=== PATIENT | female | born 1990 | race Caucasian/White ===

== ENCOUNTER 2017-03-04 19:42 | Emergency (ER) | payer MEDICAID ==
[~2017-03-04] VITALS: Ht 170.2 cm; Wt 98.7 kg
[~2017-03-04 19:42] MED LIST: ABX FOR UTI; ALBUTEROL MDI; [UNRECOGNIZED DRUG - OTHER]
[2017-03-04] MEDS ORDERED: CEFTRIAXONE 250 MG IM ONE (22:30)
[2017-03-04] MEDS ORDERED: AZITHROMYCIN 500 MG TABLET PO ONE (22:30)
[2017-03-04 22:34] VITALS: BP 116/70
[2017-03-04] MEDS ORDERED: AZITHROMYCIN 500 MG TABLET ONE (22:37)
[2017-03-04] MEDS ORDERED: CEFTRIAXONE 250 MG ONE (22:37)
[2017-03-04] MEDS ORDERED: LIDOCAINE 1%, 20ML ONE (22:38)
== END 2017-03-04 23:10 | disposition home or self-care (01) ==
LOC: ED 23:01
DX: O23.592 Infection of other part of genital tract in pregnancy, second trimester (principal); Z3A.17 17 weeks gestation of pregnancy; N76.0 Acute vaginitis; J45.901 Unspecified asthma with (acute) exacerbation; Z88.0 Allergy status to penicillin; Z87.891 Personal history of nicotine dependence
CPT/HCPCS: 81003; 87210; 87491; 87591; 87808; 96372; 99284; J0696

== ENCOUNTER 2017-04-23 18:42 | Outpatient (CLI) | payer MEDICAID ==
[2017-04-23 20:25] VITALS: BP 130/80
[2017-04-23 20:26] LABS: DAU SCREEN DISCLAIMER
[2017-04-23 21:02] LABS: HIV 1&2 ANTIBODY SCREEN Nonreactive (Nonreactive); HIV-1 p24 ANTIGEN Nonreactive (Nonreactive)
== END 2017-04-23 21:33 | disposition home or self-care (01) ==
LOC: LDOP 18:42
PROVIDERS: ATTEND Obstetrics & Gynecology
DX: O26.893 Other specified pregnancy related conditions, third trimester (principal); O99.343 Other mental disorders complicating pregnancy, third trimester; O99.513 Diseases of the respiratory system complicating pregnancy, third trimester; F32.9 Major depressive disorder, single episode, unspecified; R10.9 Unspecified abdominal pain; J45.909 Unspecified asthma, uncomplicated; Z3A.36 36 weeks gestation of pregnancy
CPT/HCPCS: 36415; 59025; 80307; 81001; 85027; 86592; 86703; 86762; 86780; 86850; 86900; 87081; 87086; 87340; 87899; 99201; G0435; G0463

== ENCOUNTER 2017-05-05 12:47 | Outpatient (CLI) | payer MEDICAID ==
[~2017-05-05] VITALS: Ht 170.2 cm; Wt 99.8 kg
[2017-05-05 14:16] LABS: ASPARTATE AMINO TRANSFERASE 10 U/L (15-37); BLOOD UREA NITROGEN 5 mg/dL (7-18)
== END 2017-05-05 15:46 | disposition home or self-care (01) ==
LOC: LDOP 12:47
PROVIDERS: ATTEND Obstetrics & Gynecology
DX: O26.893 Other specified pregnancy related conditions, third trimester (principal); O99.513 Diseases of the respiratory system complicating pregnancy, third trimester; O99.343 Other mental disorders complicating pregnancy, third trimester; J45.909 Unspecified asthma, uncomplicated; F32.9 Major depressive disorder, single episode, unspecified; R10.9 Unspecified abdominal pain; Z3A.38 38 weeks gestation of pregnancy
CPT/HCPCS: 36415; 59025; 80053; 81001; 82248; 82570; 84156; 84550; 85025; 87077; 87086; 87147; 87186; 99211; G0463

== ENCOUNTER 2017-05-05 21:33 | Outpatient (CLI) | payer MEDICAID | END 2017-05-06 | disposition home or self-care (01) | LOC: LDOP 21:33 | PROVIDERS: ATTEND Obstetrics & Gynecology | DX: O26.893 Other specified pregnancy related conditions, third trimester (principal); O62.9 Abnormality of forces of labor, unspecified; R10.9 Unspecified abdominal pain; Z3A.38 38 weeks gestation of pregnancy | CPT/HCPCS: 59025; 99211; G0463 ==

== ENCOUNTER 2017-05-08 22:58 | Outpatient (CLI) | payer MEDICAID ==
[~2017-05-08] VITALS: Ht 170.2 cm; Wt 118.2 kg
[2017-05-09 00:09] LABS: DAU SCREEN DISCLAIMER
== END 2017-05-09 01:00 | disposition home or self-care (01) ==
LOC: LDOP 22:58
PROVIDERS: ATTEND Obstetrics & Gynecology
DX: O26.893 Other specified pregnancy related conditions, third trimester (principal); O62.9 Abnormality of forces of labor, unspecified; R10.9 Unspecified abdominal pain; Z3A.39 39 weeks gestation of pregnancy
CPT/HCPCS: 59025; 80307; 81001; 87077; 87086; 87186; 99211; G0463

== ENCOUNTER 2017-05-11 07:19 | Inpatient (IN) | payer MEDICAID ==
[~2017-05-11] VITALS: Ht 170.2 cm; Wt 100.0 kg
[2017-05-11 07:28] VITALS: BP 132/87
[2017-05-11 07:49] LABS: DAU SCREEN DISCLAIMER
[2017-05-11 08:45] LABS: AMNI OBC PASS; AMNISURE POSITIVE (NEGATIVE)
[2017-05-11] MEDS ORDERED: OXYTOCIN 30U/ 0.9% NaCL 500ML 500 ML IV PRN (09:34)
[2017-05-11] MEDS ORDERED: OXYTOCIN 30U/ 0.9% NaCL 500ML 500 ML IV ONE (09:34)
[2017-05-11] MEDS: D5%-LACTATED RINGERS 1,000 ML IV SCH ×2 (09:34→17:34)
[2017-05-11] MEDS ORDERED: CALCIUM CARBONATE 500 MG TAB.CHEW PO PRN (10:00)
[2017-05-11] MEDS ORDERED: ONDANSETRON 2MG/ML, 2ML IVPush PRN (10:00)
[2017-05-11] MEDS ORDERED: SODIUM CITRATE/CITRIC ACID 30 ML UDC PO PRN (10:00)
[2017-05-11] MEDS ORDERED: ALUMINUM/MAG/SIMETHICONE 30 ML UDC PO PRN (10:00)
[2017-05-11] MEDS ORDERED: LIDOCAINE 1%, 20ML ONE (10:17)
[2017-05-11] MEDS ORDERED: NEWBORN KIT ONE (10:17)
[2017-05-11] MEDS ORDERED: MISOPROSTOL 200 MCG TABLET ONE (10:17)
[2017-05-11] MEDS ORDERED: FENTANYL PF 100 MCG/2ML ONE ×5 (10:17→18:24)
[2017-05-11] MEDS ORDERED: OXYTOCIN 30U/ 0.9% NaCL 500ML 500 ML ONE (10:18)
[2017-05-11] MEDS: LACTATED RINGERS 1,000 ML IV SCH ×3 (10:20→18:28)
[2017-05-11] MEDS: VANCOMYCIN PMX 1GM/200ML 200 ML IVPB SCH ×2 (10:21→22:00)
[2017-05-11] MEDS: FENTANYL PF 100 MCG/2ML IVPush PRN ×2 (10:24→12:09)
[2017-05-11] MEDS ORDERED: ONDANSETRON 2MG/ML, 2ML ONE (12:59)
[2017-05-11] MEDS: CEFTRIAXONE PMX 1GM/50ML 50 ML IV SCH (13:01)
[2017-05-11] MEDS ORDERED: FENTANYL/BUPIV./NS/PF 250 ML EPIDCONT ONE (13:40)
[2017-05-11] MEDS ORDERED: LIDOCAINE/PF 1.5%-EPI 1:200K, 30ML ONE ×2 (13:40→13:45)
[2017-05-11] MEDS ORDERED: KETOROLAC 30 MG/1 ML ONE (13:45)
[2017-05-11] MEDS ORDERED: CEFAZOLIN 1,000 MG ONE (13:45)
[2017-05-11] MEDS ORDERED: METOPROLOL 1 MG/ML, 5ML ONE (13:45)
[2017-05-11] MEDS ORDERED: LACTATED RINGERS 1,000 ML IV SCH ×2 (14:21→18:00)
[2017-05-11] MEDS ORDERED: FENTANYL/BUPIV./NS/PF 250 ML EPIDCONT SCH (14:21)
[2017-05-11] MEDS ORDERED: LACTATED RINGERS 1,000 ML IVBOLUS PRN (14:30)
[2017-05-11] MEDS ORDERED: METOCLOPRAMIDE 5 MG/ML, 2ML ONE (17:38)
[2017-05-11] MEDS ORDERED: SODIUM CITRATE/CITRIC ACID 30 ML UDC ONE (17:38)
[2017-05-11] MEDS ORDERED: OXYTOCIN 30U/ 0.9% NaCL 500ML 500 ML IV SCH (17:45)
[2017-05-11] MEDS ORDERED: LACTATED RINGERS 1,000 ML IVBOLUS ONE (18:00)
[2017-05-11] MEDS ORDERED: SODIUM CITRATE/CITRIC ACID 30 ML UDC PO ONE (18:00)
[2017-05-11] MEDS ORDERED: METOCLOPRAMIDE 5 MG/ML, 2ML IV ONE (18:00)
[2017-05-11] MEDS ORDERED: LIDOCAINE/MPF 2%-EPI 1:200K, 20 ML ONE (18:18)
[2017-05-11] MEDS ORDERED: HYDROmorphone 2 MG/ML, 1ML ONE (18:24)
[2017-05-11] MEDS: OXYTOCIN 30U/ 0.9% NaCL 500ML 500 ML IV SCH (18:28)
[2017-05-11] MEDS: KETOROLAC 30 MG/1 ML IV SCH (18:30)
[2017-05-11] MEDS ORDERED: MEPERIDINE/PF 50 MG/ML IM PRN (18:30)
[2017-05-11] MEDS ORDERED: MEASLES,MUMPS&RUBELLA VACC/PF 0.5 ML SQ-VACC PRN (18:30)
[2017-05-11] MEDS ORDERED: DIPH,PERTUSS(ACELL),TET VAC/PF NC IM-VACC PRN (18:30)
[2017-05-11] MEDS ORDERED: MISOPROSTOL 200 MCG TABLET PR PRN (18:30)
[2017-05-11] MEDS ORDERED: RHOGAM FROM BLOOD BANK 1 NOTE EA IM/IV ONE (18:30)
[2017-05-11] MEDS ORDERED: ONDANSETRON 2MG/ML, 2ML IV PRN (18:30)
[2017-05-11] MEDS ORDERED: OXYcodone 5 MG/5 ML ORAL.SOL UDC ONE (20:38)
[2017-05-11 21:45] VITALS: BP 105/74
[2017-05-12] MEDS: KETOROLAC 30 MG/1 ML IV SCH ×3 (00:58→13:14)
[2017-05-12] MEDS: OXYcodone IR 5MG TABLET PO PRN ×5 (00:58→20:00)
[2017-05-12 01:00] VITALS: BP 129/83
[2017-05-12] MEDS: LACTATED RINGERS 1,000 ML IV SCH ×2 (02:28→10:28)
[2017-05-12] MEDS: OXYTOCIN 30U/ 0.9% NaCL 500ML 500 ML IV SCH (04:28)
[2017-05-12 05:15] VITALS: BP 133/90
[2017-05-12 07:33] VITALS: BP 123/82
[2017-05-12] MEDS: DOCUSATE 100 MG CAPSULE PO PRN (09:23)
[2017-05-12] MEDS: PRENATAL VIT/IRON/FA 1 EACH TABLET PO SCH (09:23)
[2017-05-12] MEDS: DOXYCYCLINE 100MG TABLET PO SCH ×2 (09:24→21:49)
[2017-05-12] MEDS ORDERED: OXYcodone IR 5MG TABLET ONE (11:44)
[2017-05-12] MEDS: NITROFURANTOIN (MACROBID) 100 MG CAPSULE PO SCH ×2 (11:46→21:49)
[2017-05-12] MEDS: CEFTRIAXONE PMX 1GM/50ML 50 ML IV SCH (13:15)
[2017-05-12 16:26] VITALS: BP 112/74
[2017-05-12 19:40] VITALS: BP 147/82
[2017-05-12] MEDS: IBUPROFEN 600 MG TABLET PO PRN (20:00)
[2017-05-13] MEDS: OXYcodone IR 5MG TABLET PO PRN ×5 (03:52→21:58)
[2017-05-13] MEDS: IBUPROFEN 600 MG TABLET PO PRN ×2 (03:53→12:21)
[2017-05-13 08:00] VITALS: BP 117/82
[2017-05-13] MEDS: PRENATAL VIT/IRON/FA 1 EACH TABLET PO SCH (08:03)
[2017-05-13] MEDS: DOXYCYCLINE 100MG TABLET PO SCH ×2 (08:03→21:58)
[2017-05-13] MEDS: DOCUSATE 100 MG CAPSULE PO PRN (08:03)
[2017-05-13] MEDS: NITROFURANTOIN (MACROBID) 100 MG CAPSULE PO SCH ×2 (08:03→21:58)
[2017-05-13 21:48] VITALS: BP 134/91
[2017-05-14 02:36] VITALS: BP 123/84
[2017-05-14 03:14] LABS: ASPARTATE AMINO TRANSFERASE 15 U/L (15-37); BLOOD UREA NITROGEN 10 mg/dL (7-18)
[2017-05-14] MEDS: OXYcodone IR 5MG TABLET PO PRN ×4 (06:22→22:09)
[2017-05-14 08:00] VITALS: BP 135/89
[2017-05-14] MEDS: PRENATAL VIT/IRON/FA 1 EACH TABLET PO SCH (09:00)
[2017-05-14] MEDS: DOXYCYCLINE 100MG TABLET PO SCH ×2 (10:49→22:09)
[2017-05-14] MEDS: DOCUSATE 100 MG CAPSULE PO PRN (10:50)
[2017-05-14] MEDS: NITROFURANTOIN (MACROBID) 100 MG CAPSULE PO SCH ×2 (10:50→22:09)
[2017-05-14] MEDS: IBUPROFEN 600 MG TABLET PO PRN (18:44)
[2017-05-14 20:30] VITALS: BP 115/73
[2017-05-15] MEDS: OXYcodone IR 5MG TABLET PO PRN ×3 (04:14→12:58)
[2017-05-15] MEDS: IBUPROFEN 600 MG TABLET PO PRN ×2 (04:14→12:58)
[2017-05-15 08:00] VITALS: BP 125/83
[2017-05-15] MEDS: PRENATAL VIT/IRON/FA 1 EACH TABLET PO SCH (08:47)
[2017-05-15] MEDS: DOXYCYCLINE 100MG TABLET PO SCH (08:47)
[2017-05-15] MEDS: NITROFURANTOIN (MACROBID) 100 MG CAPSULE PO SCH (08:48)
[2017-05-15] MEDS: DOCUSATE 100 MG CAPSULE PO PRN (08:48)
[2017-05-15] MEDS ORDERED: OXYC-302 PO (12:02)
[2017-05-15] MEDS ORDERED: DOCU-30 PO (12:03)
[2017-05-15] MEDS ORDERED: IBUP-1222 PO (12:03)
[2017-05-15] MEDS ORDERED: NITR100C56 PO (12:04)
[2017-05-15] MEDS ORDERED: DOXY100V9 PO (12:10)
== END 2017-05-15 15:23 | disposition home or self-care (01) | DRG 765 ==
LOC: LDOP 07:19 → LDIP 09:45 → 2NW 21:27
PROVIDERS: ADMIT Specialist; ATTEND Specialist
PROC: 10D00Z1 Extraction of Products of Conception, Low, Open Approach (ICD-10-PCS; principal; 2017-05-11)
PROC: 0UB00ZZ Excision of Right Ovary, Open Approach (ICD-10-PCS; 2017-05-11)
DX: O98.12 Syphilis complicating childbirth (principal); A51.31 Condyloma latum; O23.43 Unspecified infection of urinary tract in pregnancy, third trimester; A51.49 Other secondary syphilitic conditions; A51.0 Primary genital syphilis; Z37.0 Single live birth; O99.824 Streptococcus B carrier state complicating childbirth; B96.20 Unspecified Escherichia coli [E. coli] as the cause of diseases classified elsewhere; O26.893 Other specified pregnancy related conditions, third trimester; N83.209 Unspecified ovarian cyst, unspecified side; O32.3XX0 Maternal care for face, brow and chin presentation, not applicable or unspecified; Z88.0 Allergy status to penicillin; Z3A.39 39 weeks gestation of pregnancy
CPT/HCPCS: 36415; 80053; 80307; 82803; 84112; 85025; 86592; 86780; 86850; 86900; 88304; 88307; 89060; 90715; J0690; J0696; J1170; J1885; J2175; J2405; J3010; J3370; J3490; J7120; Q0114

== ENCOUNTER 2017-05-16 01:06 | Emergency (ER) | payer MEDICAID ==
[~2017-05-16] VITALS: Ht 160 cm; Wt 78.0 kg
[~2017-05-16 01:06] MED LIST changes: +DOCU-30 PO; +DOXY100V9 PO; +IBUP-1222 PO; +NITR100C56 PO; +OXYC-302 PO
[2017-05-16] MEDS ORDERED: MORPHINE SULFATE 4 MG/ML, 1ML ONE (01:52)
[2017-05-16] MEDS ORDERED: ONDANSETRON 2MG/ML, 2ML ONE (01:52)
[2017-05-16 02:00] LABS: BLOOD UREA NITROGEN 15 mg/dL (7-18)
[2017-05-16] MEDS ORDERED: SODIUM CHLORIDE FLUSH 10ML SYR IVF ONE (02:00)
[2017-05-16] MEDS ORDERED: ONDANSETRON 2MG/ML, 2ML IVPush ONE (02:00)
[2017-05-16] MEDS ORDERED: MORPHINE SULFATE 4 MG/ML, 1ML IVPush PRN (02:00)
[2017-05-16] MEDS ORDERED: SODIUM CHLORIDE 0.9% 1,000ML IVBOLUS ONE (02:00)
[2017-05-16] MEDS ORDERED: OMNIPAQUE 350 MG/ML, 100ML BOTTLE ONE (02:31)
[2017-05-16 03:46] VITALS: BP 128/82
== END 2017-05-16 03:47 | disposition home or self-care (01) ==
LOC: ED 01:32
DX: G89.18 Other acute postprocedural pain (principal); R10.2 Pelvic and perineal pain; F43.10 Post-traumatic stress disorder, unspecified; J45.909 Unspecified asthma, uncomplicated; N83.209 Unspecified ovarian cyst, unspecified side
CPT/HCPCS: 36415; 74177; 80048; 82040; 85025; 96361; 96374; 96375; 99285; J2405; J7030; Q9967

== ENCOUNTER 2017-06-29 20:36 | Emergency (ER) | payer MEDICAID ==
[~2017-06-29] VITALS: Ht 170.2 cm; Wt 94.2 kg
[~2017-06-29 20:36] MED LIST changes: +DOCU-131 PO; -DOCU-30 PO
[2017-06-29 20:42] VITALS: BP 127/76
[2017-06-29] MEDS ORDERED: SODIUM CHLORIDE FLUSH 10ML SYR IVF ONE (21:00)
[2017-06-29] MEDS ORDERED: SODIUM CHLORIDE 0.9% 1,000ML IVBOLUS ONE (21:00)
[2017-06-29] MEDS ORDERED: ONDANSETRON 2MG/ML, 2ML IVPush ONE (21:00)
[2017-06-29 21:56] LABS: HEMATOCRIT 37.6 % (34.6-47.8); HEMOGLOBIN 12.2 g/dL (11.7-16.4); WHITE BLOOD COUNT 7.4 x10^3/uL (3.4-10)
[2017-06-29 22:08] LABS: ASPARTATE AMINO TRANSFERASE 16 U/L (15-37); BLOOD UREA NITROGEN 7 mg/dL (7-18)
== END 2017-06-29 23:57 | disposition home or self-care (01) ==
LOC: ED 23:51
DX: J20.9 Acute bronchitis, unspecified (principal); B34.9 Viral infection, unspecified; F17.200 Nicotine dependence, unspecified, uncomplicated; F43.10 Post-traumatic stress disorder, unspecified; J45.909 Unspecified asthma, uncomplicated; Z59.0 Homelessness; Z88.0 Allergy status to penicillin
CPT/HCPCS: 36415; 71010; 80053; 81001; 83690; 84703; 85025; 87081; 87147; 87880; 99285

== ENCOUNTER 2017-08-05 15:24 | Emergency (ER) | payer MEDICAID ==
[~2017-08-05] VITALS: Ht 170.2 cm; Wt 103.0 kg
[2017-08-05 17:07] LABS: HEMATOCRIT 34.2 % (34.6-47.8)
[2017-08-05 17:14] VITALS: BP 125/77
[2017-08-05 17:16] LABS: ASPARTATE AMINO TRANSFERASE 17 U/L (15-37); BLOOD UREA NITROGEN 10 mg/dL (7-18)
== END 2017-08-05 18:14 | disposition home or self-care (01) ==
LOC: ED 17:58
DX: H61.23 Impacted cerumen, bilateral (principal); N83.201 Unspecified ovarian cyst, right side; N93.8 Other specified abnormal uterine and vaginal bleeding; J45.909 Unspecified asthma, uncomplicated; Z59.0 Homelessness
CPT/HCPCS: 36415; 76830; 80053; 81001; 84703; 85025; 87086; 99285

== ENCOUNTER 2017-09-16 12:58 | Emergency (ER) | payer MEDICAID ==
[~2017-09-16] VITALS: Ht 170.2 cm; Wt 105.0 kg
[2017-09-16 13:04] VITALS: BP 97/64
[2017-09-16] MEDS ORDERED: KETOROLAC 30 MG/1 ML IM ONE (14:00)
[2017-09-16 14:16] LABS: HEMATOCRIT 40.2 % (34.6-47.8); WHITE BLOOD COUNT 8.1 x10^3/uL (3.4-10)
[2017-09-16] MEDS ORDERED: KETOROLAC 30 MG/1 ML ONE (14:30)
[2017-09-16 15:02] LABS: PATH.CAST-FLAG NOT PRESENT; SPERM-FLAG NOT PRESENT; SRC-FLAG NOT PRESENT; XTAL-FLAG NOT PRESENT; YLC-FLAG NOT PRESENT
== END 2017-09-16 15:11 | disposition home or self-care (01) ==
LOC: ED 15:05
DX: N94.6 Dysmenorrhea, unspecified (principal); J45.909 Unspecified asthma, uncomplicated; F32.9 Major depressive disorder, single episode, unspecified; Z59.0 Homelessness
CPT/HCPCS: 36415; 76830; 81001; 84703; 85025; 87086; 96372; 99285; J1885

== ENCOUNTER 2017-10-27 16:21 | Emergency (ER) | payer MEDICAID ==
[~2017-10-27] VITALS: Ht 170.2 cm; Wt 105.0 kg
[2017-10-27 16:22] VITALS: BP 119/78
== END 2017-10-27 18:06 | disposition home or self-care (01) ==
LOC: ED 18:00
DX: S80.02XA Contusion of left knee, initial encounter (principal); F32.9 Major depressive disorder, single episode, unspecified; J45.909 Unspecified asthma, uncomplicated; Z59.0 Homelessness; V29.9XXA Motorcycle rider (driver) (passenger) injured in unspecified traffic accident, initial encounter; Y93.55 Activity, bike riding; Y92.488 Other paved roadways as the place of occurrence of the external cause; Y99.8 Other external cause status
CPT/HCPCS: 99284

== ENCOUNTER 2017-10-31 15:54 | Emergency (ER) | payer MEDICAID ==
[~2017-10-31] VITALS: Ht 170.2 cm; Wt 108.2 kg
[2017-10-31 15:56] VITALS: BP 121/68
== END 2017-10-31 16:25 | disposition home or self-care (01) ==
LOC: ED 16:16
DX: J02.8 Acute pharyngitis due to other specified organisms (principal); J45.909 Unspecified asthma, uncomplicated; F43.10 Post-traumatic stress disorder, unspecified
CPT/HCPCS: 99283

== ENCOUNTER 2017-11-15 19:36 | Emergency (ER) | payer MEDICAID ==
[~2017-11-15] VITALS: Ht 170.2 cm; Wt 104.5 kg
[2017-11-15] MEDS ORDERED: SODIUM CHLORIDE 0.9% 1,000 ML IV ONE (20:13)
[2017-11-15] MEDS ORDERED: SODIUM CHLORIDE FLUSH 10ML SYR IVF ONE (20:30)
[2017-11-15] MEDS ORDERED: ALBU0.63 NEB (20:39)
[2017-11-15] MEDS ORDERED: anti anxiety (20:39)
[2017-11-15] MEDS ORDERED: HYDR10TA4 PO (20:40)
[2017-11-15] MEDS ORDERED: SERT25TA3 PO (20:41)
[2017-11-15 20:49] VITALS: BP 111/75
[2017-11-15 20:57] LABS: BASOPHILS # (AUTO) 0.03 x10^3/uL (0-0.1); BASOPHILS % (AUTO) 1 % (0-1); EOSINOPHILS # (AUTO) 0.08 x10^3/uL (0-0.4); EOSINOPHILS % (AUTO) 1 % (1-7); LYMPHOCYTES % (AUTO) 37 % (22-44); MD NO; MEAN CORPUSCULAR HEMOGLOBIN 26.8 pg (27.0-34.8); MEAN CORPUSCULAR HGB CONC 32.6 g/dL (32.4-35.8); MEAN CORPUSCULAR VOLUME 82.2 fL (80-100); MEAN PLATELET VOLUME 9.6 fL (7.4-10.4); MONOCYTES # (AUTO) 0.49 x10^3/uL (0.2-0.8); MONOCYTES % (AUTO) 8 % (2-9); NEUTROPHILS # (AUTO) 3.43 x10^3/uL (1.8-6.8); NEUTROPHILS % (AUTO) 53 % (42-75); PLATELET COUNT 245 x10^3/uL (130-400); RED BLOOD COUNT 4.54 x10^6/uL (3.82-5.3); RED CELL DISTRIBUTION WIDTH 16.6 % (9.6-15.2)
[2017-11-15 21:07] LABS: ANION GAP 7 mmol/L (5-15); CALCIUM 8.7 mg/dL (8.5-10.1); CHLORIDE 108 mmol/L (98-107); CREATININE 0.65 mg/dL (0.55-1.02)
[2017-11-15 21:08] LABS: ALANINE AMINOTRANSFERASE 23 U/L (12-78); ALBUMIN 3.7 g/dL (3.4-5.0)
[2017-11-15 21:12] LABS: ALKALINE PHOSPHATASE 73 U/L (45-117); BILIRUBIN,TOTAL 0.4 mg/dL (0.2-1.0)
[2017-11-15 21:16] LABS: MICROSCOPIC AUTO
[2017-11-15 21:17] LABS: CULTURE INDICATED? NO
== END 2017-11-15 22:04 | disposition home or self-care (01) ==
LOC: ED 20:43
DX: K80.20 Calculus of gallbladder without cholecystitis without obstruction (principal); F43.10 Post-traumatic stress disorder, unspecified
CPT/HCPCS: 36415; 76700; 76830; 80053; 81001; 84703; 85025; 96360; 99285; J7030

== ENCOUNTER 2017-11-21 18:05 | Inpatient (IN) | payer MEDICAID ==
[~2017-11-21] VITALS: Ht 170.2 cm; Wt 105.7 kg
[~2017-11-21 18:05] MED LIST changes: +ALBU0.63 NEB; +HYDR10TA4 PO; +SERT25TA3 PO; +anti anxiety
[2017-11-21] MEDS ORDERED: SODIUM CHLORIDE 0.9% 1,000ML IVBOLUS ONE (19:00)
[2017-11-21] MEDS ORDERED: ONDANSETRON 2MG/ML, 2ML IVPush ONE (19:00)
[2017-11-21] MEDS ORDERED: SODIUM CHLORIDE FLUSH 10ML SYR IVF ONE (19:00)
[2017-11-21] MEDS ORDERED: MORPHINE SULFATE 4 MG/ML, 1ML IVPush PRN ×2 (19:00→21:00)
[2017-11-21 19:11] LABS: BASOPHILS # (AUTO) 0.02 x10^3/uL (0-0.1); BASOPHILS % (AUTO) 0 % (0-1); EOSINOPHILS # (AUTO) 0.05 x10^3/uL (0-0.4); EOSINOPHILS % (AUTO) 1 % (1-7); LYMPHOCYTES # (AUTO) 2.27 x10^3/uL (1-3.4); LYMPHOCYTES % (AUTO) 33 % (22-44); MD NO; MEAN CORPUSCULAR HEMOGLOBIN 26.7 pg (27.0-34.8); MEAN CORPUSCULAR HGB CONC 32.2 g/dL (32.4-35.8); MEAN CORPUSCULAR VOLUME 82.8 fL (80-100); MEAN PLATELET VOLUME 8.9 fL (7.4-10.4); MONOCYTES # (AUTO) 0.39 x10^3/uL (0.2-0.8); MONOCYTES % (AUTO) 6 % (2-9); NEUTROPHILS # (AUTO) 4.25 x10^3/uL (1.8-6.8); NEUTROPHILS % (AUTO) 61 % (42-75); PLATELET COUNT 259 x10^3/uL (130-400); RED BLOOD COUNT 4.31 x10^6/uL (3.82-5.3); RED CELL DISTRIBUTION WIDTH 16.7 % (9.6-15.2)
[2017-11-21 19:23] LABS: ALANINE AMINOTRANSFERASE 24 U/L (12-78); ALBUMIN 3.4 g/dL (3.4-5.0); ANION GAP 7 mmol/L (5-15); CALCIUM 8.4 mg/dL (8.5-10.1); CHLORIDE 106 mmol/L (98-107); CREATININE 0.56 mg/dL (0.55-1.02)
[2017-11-21 19:28] LABS: ALKALINE PHOSPHATASE 74 U/L (45-117); BILIRUBIN,TOTAL 0.4 mg/dL (0.2-1.0); TOTAL PROTEIN 6.5 g/dL (6.4-8.2)
[2017-11-21] MEDS ORDERED: ONDANSETRON 2MG/ML, 2ML ONE (19:50)
[2017-11-21] MEDS ORDERED: MORPHINE SULFATE 4 MG/ML, 1ML ONE (19:50)
[2017-11-21 19:51] LABS: MICROSCOPIC NOT IND
[2017-11-21 19:56] LABS: CULTURE INDICATED? NO
[2017-11-21] MEDS ORDERED: D5%-0.45% NACL 1,000 ML IV ONE (20:50)
[2017-11-21] MEDS ORDERED: SODIUM CHLORIDE FLUSH 10ML SYR IVF PRN (21:00)
[2017-11-21 22:38] VITALS: BP 111/71
[2017-11-21] MEDS: OXYcodone/APAP 5/325MG TABLET PO PRN (23:35)
[2017-11-22 03:08] VITALS: BP 121/70
[2017-11-22] MEDS: OXYcodone/APAP 5/325MG TABLET PO PRN (05:50)
[2017-11-22] MEDS ORDERED: MIDAZOLAM 1 MG/ML, 2ML ONE (07:12)
[2017-11-22] MEDS ORDERED: FENTANYL PF 250 MCG/5ML ONE (07:12)
[2017-11-22] MEDS ORDERED: ROCURONIUM 10 MG/ML,10ML ONE (07:22)
[2017-11-22] MEDS ORDERED: SUCCINYLCHOLINE 20 MG/ML, 10ML ONE (07:22)
[2017-11-22] MEDS ORDERED: PROPOFOL 10 MG/ML, 20ML ONE (07:22)
[2017-11-22] MEDS ORDERED: BUPIVACAINE/PF 0.5% ONE (07:48)
[2017-11-22] MEDS ORDERED: MEPERIDINE/PF 25MG/0.5ML IVPush PRN (08:00)
[2017-11-22] MEDS ORDERED: LABETALOL 5MG/ML, 20ML IV PRN (08:00)
[2017-11-22] MEDS ORDERED: HYDROmorphone 1 MG/ML, 1ML IV PRN (08:00)
[2017-11-22] MEDS ORDERED: hydrALAzine 20 MG/ML, 1ML IV PRN (08:00)
[2017-11-22] MEDS ORDERED: ACETAMINOPHEN 325 MG TABLET PO PRN (08:00)
[2017-11-22] MEDS ORDERED: PROMETHAZINE 12.5 MG SUPP PR PRN (08:00)
[2017-11-22] MEDS ORDERED: ALBUTEROL SULFATE 2.5 MG/3 ML NPPB PRN (08:00)
[2017-11-22] MEDS ORDERED: OXYcodone 5 MG/5 ML ORAL.SOL UDC PO PRN ×2 (08:00→10:30)
[2017-11-22] MEDS ORDERED: ONDANSETRON 2MG/ML, 2ML IVPush PRN ×2 (08:00→10:30)
[2017-11-22] MEDS ORDERED: CEFOTETAN 2 GM ONE (08:01)
[2017-11-22] MEDS ORDERED: DEXAMETHASONE 4 MG/ML, 1ML ONE (08:09)
[2017-11-22] MEDS ORDERED: ONDANSETRON 2MG/ML, 2ML ONE ×2 (08:24→09:33)
[2017-11-22] MEDS ORDERED: BUPIVACAINE/PF 0.5% INFIL ONE (08:31)
[2017-11-22] MEDS ORDERED: KETOROLAC 30 MG/1 ML ONE (08:49)
[2017-11-22] MEDS: FENTANYL PF 100 MCG/2ML IV PRN ×2 (09:10→09:20)
[2017-11-22] MEDS ORDERED: OXYcodone 5 MG/5 ML ORAL.SOL UDC ONE (09:11)
[2017-11-22] MEDS ORDERED: FENTANYL PF 100 MCG/2ML ONE (09:12)
[2017-11-22 10:15] VITALS: BP 145/95
[2017-11-22] MEDS ORDERED: DIPHENHYDRAMINE 50 MG/ML, 1ML IVPush PRN (10:30)
[2017-11-22] MEDS ORDERED: OXYC-302 PO (10:35)
[2017-11-22 14:45] VITALS: BP 138/88
== END 2017-11-22 16:40 | disposition home or self-care (01) | DRG 446 ==
LOC: ED 19:10 → EDIP 20:50 → 4NOR 21:30
PROVIDERS: ADMIT Surgery; ATTEND Surgery
DX: K80.70 Calculus of gallbladder and bile duct without cholecystitis without obstruction (principal); F32.9 Major depressive disorder, single episode, unspecified; F43.10 Post-traumatic stress disorder, unspecified; J45.909 Unspecified asthma, uncomplicated; Z87.891 Personal history of nicotine dependence; Z59.0 Homelessness; Z87.01 Personal history of pneumonia (recurrent); Z87.440 Personal history of urinary (tract) infections; Z98.891 History of uterine scar from previous surgery
CPT/HCPCS: 36415; 80053; 81003; 83690; 84703; 85025; 88304; 96361; 96374; 96375; J1100; J1885; J2250; J2405; J2704; J3010; J3490; J0330; J1200; J7030; S0074

== ENCOUNTER 2017-12-01 19:01 | Emergency (ER) | payer MEDICAID ==
[~2017-12-01] VITALS: Ht 170.2 cm; Wt 105.0 kg
[2017-12-01] MEDS ORDERED: DIPHENHYDRAMINE 50 MG/ML, 1ML ONE (19:14)
[2017-12-01] MEDS ORDERED: DIPHENHYDRAMINE 50 MG/ML, 1ML IVPush ONE (19:30)
[2017-12-01] MEDS ORDERED: PLEASE ENTER HEIGHT AND WEIGHT MC SCH (19:30)
[2017-12-01 21:17] VITALS: BP 106/55
== END 2017-12-01 21:19 | disposition home or self-care (01) ==
LOC: ED 19:25
DX: R06.00 Dyspnea, unspecified (principal); F43.10 Post-traumatic stress disorder, unspecified; J45.909 Unspecified asthma, uncomplicated; Z90.49 Acquired absence of other specified parts of digestive tract; Z88.0 Allergy status to penicillin
CPT/HCPCS: 96374; 99284; J1200

== ENCOUNTER 2017-12-18 23:35 | Emergency (ER) | payer MEDICAID ==
[~2017-12-18] VITALS: Ht 177.8 cm; Wt 90.0 kg
[2017-12-18 23:39] VITALS: BP 136/88
== END 2017-12-19 01:19 | disposition home or self-care (01) ==
LOC: ED 12-19 00:10
DX: M25.562 Pain in left knee (principal); M25.561 Pain in right knee; E87.6 Hypokalemia; J45.909 Unspecified asthma, uncomplicated; Z90.49 Acquired absence of other specified parts of digestive tract; F43.10 Post-traumatic stress disorder, unspecified
CPT/HCPCS: 99284

== ENCOUNTER 2018-01-05 15:16 | Emergency (ER) | payer MEDICAID ==
[~2018-01-05] VITALS: Ht 170.2 cm; Wt 114.0 kg
[2018-01-05 16:18] LABS: BASOPHILS # (AUTO) 0.01 x10^3/uL (0-0.1); BASOPHILS % (AUTO) 0 % (0-1); EOSINOPHILS # (AUTO) 0.05 x10^3/uL (0-0.4); EOSINOPHILS % (AUTO) 1 % (1-7); LYMPHOCYTES # (AUTO) 2.57 x10^3/uL (1-3.4); LYMPHOCYTES % (AUTO) 38 % (22-44); MD NO; MEAN CORPUSCULAR HEMOGLOBIN 26.4 pg (27.0-34.8); MEAN CORPUSCULAR HGB CONC 32.1 g/dL (32.4-35.8); MEAN PLATELET VOLUME 8.8 fL (7.4-10.4); MONOCYTES # (AUTO) 0.45 x10^3/uL (0.2-0.8); MONOCYTES % (AUTO) 7 % (2-9); NEUTROPHILS # (AUTO) 3.67 x10^3/uL (1.8-6.8); NEUTROPHILS % (AUTO) 54 % (42-75); PLATELET COUNT 282 x10^3/uL (130-400); RED BLOOD COUNT 4.83 x10^6/uL (3.82-5.3); RED CELL DISTRIBUTION WIDTH 16.5 % (9.6-15.2)
[2018-01-05 16:30] LABS: ALANINE AMINOTRANSFERASE 28 U/L (12-78); ANION GAP 8 mmol/L (5-15); CALCIUM 8.6 mg/dL (8.5-10.1); CHLORIDE 106 mmol/L (98-107); CREATININE 0.69 mg/dL (0.55-1.02)
[2018-01-05 16:35] LABS: ALKALINE PHOSPHATASE 79 U/L (45-117); BILIRUBIN,TOTAL 0.5 mg/dL (0.2-1.0); TOTAL PROTEIN 7.4 g/dL (6.4-8.2)
[2018-01-05] MEDS ORDERED: KETOROLAC 30 MG/1 ML ONE (16:51)
[2018-01-05 17:00] LABS: MICROSCOPIC NOT IND
[2018-01-05] MEDS ORDERED: KETOROLAC 30 MG/1 ML IM ONE (17:00)
[2018-01-05 17:09] LABS: CULTURE INDICATED? NO
[2018-01-05 17:29] VITALS: BP 114/73
== END 2018-01-05 17:48 | disposition home or self-care (01) ==
LOC: ED 17:45
DX: R10.30 Lower abdominal pain, unspecified (principal); F32.9 Major depressive disorder, single episode, unspecified; F43.10 Post-traumatic stress disorder, unspecified; G89.29 Other chronic pain; J45.909 Unspecified asthma, uncomplicated; N83.209 Unspecified ovarian cyst, unspecified side; Z59.0 Homelessness
CPT/HCPCS: 36415; 72110; 80053; 81003; 84703; 85025; 96372; 99285; J1885

== ENCOUNTER 2018-01-26 01:23 | Emergency (ER) | payer MEDICAID ==
[~2018-01-26] VITALS: Ht 170.2 cm; Wt 104.5 kg
[2018-01-26 01:24] VITALS: BP 112/81
[2018-01-26] MEDS ORDERED: MECLIZINE CHEWABLE 25 MG TAB PO ONE (03:00)
[2018-01-26] MEDS ORDERED: MECLIZINE CHEWABLE 25 MG TAB ONE (03:19)
== END 2018-01-26 03:30 ==
LOC: ED 03:20
DX: R42 Dizziness and giddiness (principal); E87.6 Hypokalemia; J45.909 Unspecified asthma, uncomplicated; Z88.0 Allergy status to penicillin
CPT/HCPCS: 93005; 99283

== ENCOUNTER 2018-01-28 23:12 | Emergency (ER) | payer MEDICAID ==
[~2018-01-28] VITALS: Ht 170.2 cm; Wt 105.0 kg
[2018-01-28 23:15] VITALS: BP 119/88
[2018-01-28] MEDS ORDERED: LIDOCAINE GEL 2%, 5ML ONE (23:54)
[2018-01-28] MEDS ORDERED: KETOROLAC 30 MG/1 ML ONE (23:54)
[2018-01-29] MEDS ORDERED: LIDOCAINE GEL 2%, 5ML TP ONE
[2018-01-29] MEDS ORDERED: KETOROLAC 30 MG/1 ML IM ONE
[2018-01-29] MEDS ORDERED: DEXAMETHASONE 4 MG TABLET PO ONE (00:30)
== END 2018-01-29 00:46 | disposition home or self-care (01) ==
LOC: ED 23:38
DX: M79.3 Panniculitis, unspecified (principal); J45.909 Unspecified asthma, uncomplicated; F43.10 Post-traumatic stress disorder, unspecified; Z90.49 Acquired absence of other specified parts of digestive tract; Z88.0 Allergy status to penicillin
CPT/HCPCS: 87081; 87147; 87880; 96372; 99284; J1885; 99283

== ENCOUNTER 2018-02-02 00:30 | Emergency (ER) | payer MEDICAID ==
[~2018-02-02] VITALS: Ht 172.7 cm; Wt 110.0 kg
[2018-02-02 01:08] LABS: BASOPHILS # (AUTO) 0.09 x10^3/uL (0-0.1); BASOPHILS % (AUTO) 1 % (0-1); EOSINOPHILS # (AUTO) 0.06 x10^3/uL (0-0.4); EOSINOPHILS % (AUTO) 1 % (1-7); LYMPHOCYTES # (AUTO) 2.31 x10^3/uL (1-3.4); LYMPHOCYTES % (AUTO) 24 % (22-44); MD NO; MEAN CORPUSCULAR HEMOGLOBIN 26.1 pg (27.0-34.8); MEAN CORPUSCULAR HGB CONC 31.9 g/dL (32.4-35.8); MEAN CORPUSCULAR VOLUME 81.6 fL (80-100); MEAN PLATELET VOLUME 9.3 fL (7.4-10.4); MONOCYTES # (AUTO) 0.66 x10^3/uL (0.2-0.8); MONOCYTES % (AUTO) 7 % (2-9); NEUTROPHILS # (AUTO) 6.45 x10^3/uL (1.8-6.8); NEUTROPHILS % (AUTO) 67 % (42-75); PLATELET COUNT 274 x10^3/uL (130-400); RED BLOOD COUNT 4.81 x10^6/uL (3.82-5.3); RED CELL DISTRIBUTION WIDTH 16.5 % (9.6-15.2)
[2018-02-02 01:14] LABS: ALANINE AMINOTRANSFERASE 24 U/L (12-78); ALBUMIN 3.2 g/dL (3.4-5.0); ANION GAP 8 mmol/L (5-15); CALCIUM 8.5 mg/dL (8.5-10.1); CHLORIDE 108 mmol/L (98-107); CREATININE 0.71 mg/dL (0.55-1.02)
[2018-02-02 01:19] LABS: ALKALINE PHOSPHATASE 89 U/L (45-117); BILIRUBIN,TOTAL 0.3 mg/dL (0.2-1.0); TOTAL PROTEIN 7.3 g/dL (6.4-8.2)
[2018-02-02 02:14] VITALS: BP 116/70
[2018-02-02 02:23] LABS: CULTURE INDICATED? NO; MICROSCOPIC NOT IND
== END 2018-02-02 03:37 | disposition home or self-care (01) ==
LOC: ED 00:40
DX: R10.2 Pelvic and perineal pain (principal); R10.84 Generalized abdominal pain; F32.9 Major depressive disorder, single episode, unspecified; F43.10 Post-traumatic stress disorder, unspecified; G89.29 Other chronic pain; J45.909 Unspecified asthma, uncomplicated; Z90.49 Acquired absence of other specified parts of digestive tract
CPT/HCPCS: 36415; 80053; 81003; 83690; 84703; 85025; 99284

== ENCOUNTER 2018-02-10 20:15 | Emergency (ER) | payer MEDICAID ==
[~2018-02-10] VITALS: Ht 170.2 cm; Wt 111.4 kg
[2018-02-10 20:26] VITALS: BP 120/81
== END 2018-02-10 21:26 | disposition home or self-care (01) ==
LOC: ED 21:02
DX: K02.9 Dental caries, unspecified (principal); F32.9 Major depressive disorder, single episode, unspecified; F43.10 Post-traumatic stress disorder, unspecified; J45.909 Unspecified asthma, uncomplicated; Z90.49 Acquired absence of other specified parts of digestive tract
CPT/HCPCS: 99283

== ENCOUNTER 2018-02-21 21:38 | Emergency (ER) | payer MEDICAID ==
[~2018-02-21] VITALS: Ht 170.2 cm; Wt 113.3 kg
[2018-02-21 21:40] VITALS: BP 141/86
== END 2018-02-21 23:26 | disposition home or self-care (01) ==
LOC: ED 22:03
DX: H61.23 Impacted cerumen, bilateral (principal); E66.9 Obesity, unspecified; J45.909 Unspecified asthma, uncomplicated; Z90.49 Acquired absence of other specified parts of digestive tract; F43.10 Post-traumatic stress disorder, unspecified
CPT/HCPCS: 69209; 99283

== ENCOUNTER 2018-03-05 12:47 | Emergency (ER) | payer MEDICAID ==
[~2018-03-05] VITALS: Ht 170.2 cm; Wt 107.0 kg
[2018-03-05 13:27] VITALS: BP 130/84
== END 2018-03-05 15:55 | disposition home or self-care (01) ==
LOC: ED 14:36
DX: S16.1XXA Strain of muscle, fascia and tendon at neck level, initial encounter (principal); S29.012A Strain of muscle and tendon of back wall of thorax, initial encounter; S09.90XA Unspecified injury of head, initial encounter; I10 Essential (primary) hypertension; J45.909 Unspecified asthma, uncomplicated; F43.10 Post-traumatic stress disorder, unspecified; Z90.49 Acquired absence of other specified parts of digestive tract; Z88.0 Allergy status to penicillin; Y04.8XXA Assault by other bodily force, initial encounter; Y93.89 Activity, other specified; Y92.099 Unspecified place in other non-institutional residence as the place of occurrence of the external cause; Y99.8 Other external cause status
CPT/HCPCS: 70100; 72020; 72050; 72072; 99284

== ENCOUNTER 2018-03-28 21:43 | Emergency (ER) | payer MEDICAID ==
[~2018-03-28] VITALS: Ht 170.2 cm; Wt 110.0 kg
[2018-03-28] MEDS ORDERED: SILVER SULF. CRM 1% , 25GM TP ONE (22:00)
[2018-03-28] MEDS ORDERED: KETOROLAC 30 MG/1 ML IM ONE (22:00)
[2018-03-28] MEDS ORDERED: DIPH,PERTUSS(ACELL),TET VAC/PF 0.5 ML IM-VACC ONE (22:00)
[2018-03-28] MEDS ORDERED: OXYcodone/APAP 5/325MG TABLET PO ONE (22:00)
[2018-03-28 22:05] VITALS: BP 127/71
[2018-03-28] MEDS ORDERED: OXYcodone/APAP 5/325MG TABLET ONE (22:14)
[2018-03-28] MEDS ORDERED: SILVER SULF. CRM 1% , 25GM ONE (22:14)
== END 2018-03-28 22:54 | disposition home or self-care (01) ==
LOC: ED 22:48
DX: T24.212A Burn of second degree of left thigh, initial encounter (principal); T31.0 Burns involving less than 10% of body surface; X11.8XXA Contact with other hot tap-water, initial encounter; Y93.89 Activity, other specified; Y99.8 Other external cause status; Y92.89 Other specified places as the place of occurrence of the external cause
CPT/HCPCS: 16020; 99284

== ENCOUNTER 2018-06-10 21:00 | Emergency (ER) | payer MEDICAID ==
[~2018-06-10] VITALS: Ht 170.2 cm; Wt 119.6 kg
[2018-06-10] MEDS ORDERED: ALBU0.63 NEB (22:12)
[2018-06-10 22:24] LABS: CULTURE INDICATED? YES; MICROSCOPIC INDICATED
[2018-06-10] MEDS ORDERED: ONDANSETRON ODT 4 MG PO ONE (22:30)
[2018-06-10] MEDS ORDERED: ONDANSETRON ODT 4 MG ONE (22:32)
[2018-06-10 22:39] LABS: CHLORIDE 110 mmol/L (98-107)
[2018-06-10 22:40] LABS: ALANINE AMINOTRANSFERASE 27 U/L (12-78); ALBUMIN 3.6 g/dL (3.4-5.0); ANION GAP 6 mmol/L (5-15); CALCIUM 8.3 mg/dL (8.5-10.1); CREATININE 0.72 mg/dL (0.55-1.02)
[2018-06-10 22:42] LABS: ALKALINE PHOSPHATASE 79 U/L (45-117); BILIRUBIN,TOTAL 0.4 mg/dL (0.2-1.0); TOTAL PROTEIN 6.8 g/dL (6.4-8.2)
[2018-06-10 22:44] LABS: BASOPHILS # (AUTO) 0.03 x10^3/uL (0-0.1); BASOPHILS % (AUTO) 0 % (0-1); EOSINOPHILS # (AUTO) 0.07 x10^3/uL (0-0.4); EOSINOPHILS % (AUTO) 1 % (1-7); LYMPHOCYTES % (AUTO) 38 % (22-44); MD NO; MEAN CORPUSCULAR HEMOGLOBIN 25.6 pg (27.0-34.8); MEAN CORPUSCULAR HGB CONC 32.4 g/dL (32.4-35.8); MEAN CORPUSCULAR VOLUME 79.1 fL (80-100); MEAN PLATELET VOLUME 9.8 fL (7.4-10.4); MONOCYTES # (AUTO) 0.54 x10^3/uL (0.2-0.8); MONOCYTES % (AUTO) 7 % (2-9); NEUTROPHILS % (AUTO) 53 % (42-75); PLATELET COUNT 244 x10^3/uL (130-400); RED BLOOD COUNT 4.52 x10^6/uL (3.82-5.3); RED CELL DISTRIBUTION WIDTH 17.4 % (9.6-15.2)
[2018-06-10 22:48] LABS: HCG UR SG 1.024 (1.003-1.030)
[2018-06-11 00:15] VITALS: BP 138/70
== END 2018-06-11 00:17 | disposition home or self-care (01) ==
LOC: ED 22:09
DX: N30.00 Acute cystitis without hematuria (principal); I10 Essential (primary) hypertension; F43.10 Post-traumatic stress disorder, unspecified; R19.7 Diarrhea, unspecified; J45.909 Unspecified asthma, uncomplicated; Z88.0 Allergy status to penicillin; Z90.49 Acquired absence of other specified parts of digestive tract
CPT/HCPCS: 36415; 80053; 81001; 81025; 83690; 85025; 87077; 87086; 87186; 99284; Q0162

== ENCOUNTER 2018-09-16 04:01 | Emergency (ER) | payer SELFPAY ==
[~2018-09-16] VITALS: Ht 170.2 cm; Wt 114.2 kg
[2018-09-16 04:04] VITALS: BP 122/86
== END 2018-09-16 04:54 | disposition home or self-care (01) ==
LOC: ED 04:29
DX: J41.1 Mucopurulent chronic bronchitis (principal); J98.01 Acute bronchospasm; J45.909 Unspecified asthma, uncomplicated; F32.9 Major depressive disorder, single episode, unspecified; F43.10 Post-traumatic stress disorder, unspecified; I10 Essential (primary) hypertension; E66.9 Obesity, unspecified; Z68.39 Body mass index [BMI] 39.0-39.9, adult; Z87.440 Personal history of urinary (tract) infections; Z87.01 Personal history of pneumonia (recurrent); Z90.49 Acquired absence of other specified parts of digestive tract; Z98.890 Other specified postprocedural states; Z87.42 Personal history of other diseases of the female genital tract; Z86.19 Personal history of other infectious and parasitic diseases
CPT/HCPCS: 71046; 99283

== ENCOUNTER 2018-10-29 12:52 | Emergency (ER) | payer SELFPAY ==
[~2018-10-29] VITALS: Ht 170.2 cm; Wt 119.8 kg
--- NOTE | 2018-10-29 13:22 | NUR ---
PATIENT ARRIVES TO ER WITH ABDOMINAL PAIN THAT IS CENTER LOWER (LEFT AND RIGHT) QUADRANTS WITH NAUSEA AND VOMITING THAT BEGAN FIVE WEEKS AGO. SHE HAS NOT BEEN TO A DOCTOR FOR THIS. SHE HAS HAD GALLBLADDER REMOVED BUT HAS APPENDIX. SHE STATES RECENT N/V. GOWNED. NO VOMITING NOW. RAILS UP. ON MONITOR.
[2018-10-29] MEDS ORDERED: ONDANSETRON ODT 4 MG PO ONE (13:30)
[2018-10-29 13:53] LABS: BASOPHILS # (AUTO) 0.04 x10^3/uL (0-0.1); BASOPHILS % (AUTO) 1 % (0-1); EOSINOPHILS # (AUTO) 0.07 x10^3/uL (0-0.4); EOSINOPHILS % (AUTO) 1 % (1-7); LYMPHOCYTES # (AUTO) 2.42 x10^3/uL (1-3.4); LYMPHOCYTES % (AUTO) 32 % (22-44); MD NO; MEAN CORPUSCULAR HEMOGLOBIN 26.7 pg (27.0-34.8); MEAN CORPUSCULAR HGB CONC 33.1 g/dL (32.4-35.8); MEAN CORPUSCULAR VOLUME 80.7 fL (80-100); MEAN PLATELET VOLUME 9.1 fL (7.4-10.4); MONOCYTES # (AUTO) 0.41 x10^3/uL (0.2-0.8); MONOCYTES % (AUTO) 6 % (2-9); NEUTROPHILS # (AUTO) 4.57 x10^3/uL (1.8-6.8); NEUTROPHILS % (AUTO) 61 % (42-75); PLATELET COUNT 261 x10^3/uL (130-400); RED BLOOD COUNT 4.59 x10^6/uL (3.82-5.3); RED CELL DISTRIBUTION WIDTH 17.8 % (9.6-15.2)
[2018-10-29 14:01] LABS: ALBUMIN 3.4 g/dL (3.4-5.0); ANION GAP 4 mmol/L (5-15); CALCIUM 8.6 mg/dL (8.5-10.1); CHLORIDE 110 mmol/L (98-107)
--- NOTE | 2018-10-29 14:06 | NUR ---
patient in ultrasound
[2018-10-29 14:07] LABS: ALANINE AMINOTRANSFERASE 36 U/L (12-78); ALKALINE PHOSPHATASE 98 U/L (45-117); BILIRUBIN,TOTAL 0.6 mg/dL (0.2-1.0); CREATININE 0.76 mg/dL (0.55-1.02); TOTAL PROTEIN 6.7 g/dL (6.4-8.2)
[2018-10-29] MEDS ORDERED: ONDANSETRON ODT 4 MG ONE (14:16)
--- NOTE | 2018-10-29 14:50 | NUR ---
clean catch urine obtained and sent. [facility].
[2018-10-29 15:25] LABS: MICROSCOPIC NOT IND
[2018-10-29 15:31] LABS: CULTURE INDICATED? NO
[2018-10-29 15:53] VITALS: BP 124/78
--- NOTE | 2018-10-29 15:54 | NUR ---
patient discharge teaching reviewed, shows understanding.
== END 2018-10-29 16:03 | disposition home or self-care (01) ==
LOC: ED 14:42
DX: R11.2 Nausea with vomiting, unspecified (principal); R10.9 Unspecified abdominal pain
CPT/HCPCS: 36415; 76830; 80053; 81003; 83690; 84702; 85025; 99284; Q0162

== ENCOUNTER 2018-11-04 20:36 | Emergency (ER) | payer SELFPAY ==
[~2018-11-04] VITALS: Ht 170.2 cm; Wt 120.5 kg
[2018-11-04 20:39] VITALS: BP 127/78
--- NOTE | 2018-11-04 22:07 | NUR ---
zhanna wrap applied to right foot per EDPA's instructions. pt provided with crutches at request. pt a&o, resps even and unlabored. cms intact. andre at ks.
== END 2018-11-04 22:08 | disposition home or self-care (01) ==
LOC: ED 21:15
DX: M19.071 Primary osteoarthritis, right ankle and foot (principal); I10 Essential (primary) hypertension; J45.909 Unspecified asthma, uncomplicated; F17.210 Nicotine dependence, cigarettes, uncomplicated
CPT/HCPCS: 99283

== ENCOUNTER 2018-11-17 01:40 | Emergency (ER) | payer SELFPAY ==
[~2018-11-17] VITALS: Ht 170.2 cm; Wt 120.0 kg
[2018-11-17] MEDS ORDERED: ONDANSETRON ODT 4 MG PO ONE (02:00)
[2018-11-17 02:15] LABS: BASOPHILS # (AUTO) 0.01 x10^3/uL (0-0.1); BASOPHILS % (AUTO) 0 % (0-1); EOSINOPHILS # (AUTO) 0.01 x10^3/uL (0-0.4); EOSINOPHILS % (AUTO) 0 % (1-7); LYMPHOCYTES # (AUTO) 1.23 x10^3/uL (1-3.4); LYMPHOCYTES % (AUTO) 27 % (22-44); MD NO; MEAN CORPUSCULAR HEMOGLOBIN 26.6 pg (27.0-34.8); MEAN CORPUSCULAR HGB CONC 33.1 g/dL (32.4-35.8); MEAN CORPUSCULAR VOLUME 80.3 fL (80-100); MEAN PLATELET VOLUME 8.8 fL (7.4-10.4); MONOCYTES % (AUTO) 7 % (2-9); NEUTROPHILS # (AUTO) 2.98 x10^3/uL (1.8-6.8); NEUTROPHILS % (AUTO) 66 % (42-75); PLATELET COUNT 195 x10^3/uL (130-400); RED BLOOD COUNT 4.54 x10^6/uL (3.82-5.3); RED CELL DISTRIBUTION WIDTH 18.2 % (9.6-15.2)
[2018-11-17] MEDS ORDERED: ONDANSETRON ODT 4 MG ONE (02:17)
[2018-11-17 02:24] LABS: ALBUMIN 3.4 g/dL (3.4-5.0); ANION GAP 7 mmol/L (5-15); CHLORIDE 107 mmol/L (98-107)
[2018-11-17 02:30] LABS: ALANINE AMINOTRANSFERASE 26 U/L (12-78); ALKALINE PHOSPHATASE 89 U/L (45-117); BILIRUBIN,TOTAL 0.7 mg/dL (0.2-1.0); CREATININE 0.73 mg/dL (0.55-1.02); TOTAL PROTEIN 6.7 g/dL (6.4-8.2)
[2018-11-17 02:44] LABS: CULTURE INDICATED? NO; MICROSCOPIC AUTO
[2018-11-17 03:05] LABS: RAPID INFLUENZA A Negative (Negative); RAPID INFLUENZA B Negative (Negative)
--- NOTE | 2018-11-17 03:14 | NUR ---
PT TO XRAY
[2018-11-17 03:20] VITALS: BP 134/65
--- NOTE | 2018-11-17 03:20 | NUR ---
PT RESTING ON GUMERRICK, FRIENDS AT BEDSIDE, MONITRS IN PLACE, NADN, CALL LIGHT WITHIN REACH. AWAITING XRAY RESULT
== END 2018-11-17 04:41 | disposition home or self-care (01) ==
LOC: ED 03:00
DX: R10.32 Left lower quadrant pain (principal); R11.2 Nausea with vomiting, unspecified; F32.9 Major depressive disorder, single episode, unspecified; J45.909 Unspecified asthma, uncomplicated; Z90.49 Acquired absence of other specified parts of digestive tract; Z59.0 Homelessness
CPT/HCPCS: 36415; 74021; 80053; 81001; 83690; 84703; 85025; 87400; 99284

== ENCOUNTER 2018-12-05 00:05 | Emergency (ER) | payer MEDICAID ==
[2018-12-05 00:09] VITALS: BP 123/88
--- NOTE | 2018-12-05 00:15 | NUR ---
PT AMBULATED TO ROOM WITH EDT.
--- NOTE | 2018-12-05 00:50 | NUR ---
Dr. Odell at bedside to evaluate pt.
--- NOTE | 2018-12-05 01:35 | NUR ---
Patient/Caregiver given discharge instructions and they have confirmed that they understand the instructions. Patient ambulatory with steady gait. Pt given [facility] phone number for taxi ride home.
== END 2018-12-05 01:36 | disposition home or self-care (01) ==
LOC: ED 01:07
DX: M25.561 Pain in right knee (principal); M25.562 Pain in left knee; G89.29 Other chronic pain; Z72.9 Problem related to lifestyle, unspecified; I10 Essential (primary) hypertension; J45.909 Unspecified asthma, uncomplicated; M19.90 Unspecified osteoarthritis, unspecified site; Z90.49 Acquired absence of other specified parts of digestive tract; Z88.0 Allergy status to penicillin
CPT/HCPCS: 99281

== ENCOUNTER 2018-12-16 19:03 | Emergency (ER) | payer MEDICAID ==
[~2018-12-16] VITALS: Ht 170.2 cm; Wt 118.7 kg
[2018-12-16 19:12] VITALS: BP 137/83
--- NOTE | 2018-12-16 20:15 | NUR ---
pt given dc instructions and script, educated regarding dc rx for tessalon. pt a&o, resps even and unlabored, nadn at dc. pt amb to dc desk with steady gait. all questions answered.
== END 2018-12-16 20:16 | disposition home or self-care (01) ==
LOC: ED 20:10
DX: B34.9 Viral infection, unspecified (principal); I10 Essential (primary) hypertension; F32.9 Major depressive disorder, single episode, unspecified; F43.10 Post-traumatic stress disorder, unspecified; Z72.9 Problem related to lifestyle, unspecified
CPT/HCPCS: 87081; 87880; 99283

== ENCOUNTER 2018-12-31 13:34 | Emergency (ER) | payer MEDICAID ==
[~2018-12-31] VITALS: Ht 170.2 cm; Wt 117.0 kg
--- NOTE | 2018-12-31 14:04 | NUR ---
PT AMBULATED TO THE BATHROOM WITH STEADY GAIT. PT COMPLAINS OF LBP FOR TWO DAYS. PT IS ALERT, ORIENTED, WITH NAD. PT IS CONNECTED TO THE MONITOR. CALL LIGHT WITHIN REACH.
[2018-12-31] MEDS ORDERED: KETOROLAC 30 MG/1 ML ONE (14:21)
[2018-12-31] MEDS ORDERED: LIDODERM 5% PATCH TD ONE ×2 (14:21→14:30)
[2018-12-31] MEDS ORDERED: DIAZEPAM 5 MG TABLET ONE (14:22)
[2018-12-31] MEDS ORDERED: DIAZEPAM 5 MG TABLET PO ONE (14:30)
[2018-12-31] MEDS ORDERED: ACETAMINOPHEN 500 MG TABLET ONE (14:30)
[2018-12-31] MEDS ORDERED: ACETAMINOPHEN 500 MG TABLET PO ONE (14:30)
[2018-12-31] MEDS ORDERED: KETOROLAC 30 MG/1 ML IM ONE (14:30)
[2018-12-31 14:35] LABS: MICROSCOPIC INDICATED
--- NOTE | 2018-12-31 14:41 | NUR ---
PT MEDICATED PER ORDER.
--- NOTE | 2018-12-31 14:59 | NUR ---
PT IS RESTING IN BED PLAYING GAMES ON HER PHONE. RESPIRATIONS EQUAL AND NON LABORED. NAD. PT IS CONNECTED TO THE MONITOR. CALL LIGHT WITHIN REACH. FRIENDS AT BEDSIDE.
[2018-12-31] MEDS ORDERED: ONDANSETRON ODT 4 MG ONE (15:58)
--- NOTE | 2018-12-31 15:59 | NUR ---
PT COMPLAINS OF NAUSEA. MD INFORMED. VERBAL ORDER ZOFRAN 4MG ODT.
[2018-12-31 16:00] VITALS: BP 131/86
--- NOTE | 2018-12-31 16:33 | NUR ---
Patient given discharge instructions and they have confirmed that they understand the instructions. Patient ambulatory with steady gait.
== END 2018-12-31 16:34 | disposition home or self-care (01) ==
LOC: ED 15:02
DX: M54.5 Low back pain (principal); I10 Essential (primary) hypertension; F17.210 Nicotine dependence, cigarettes, uncomplicated; Z90.49 Acquired absence of other specified parts of digestive tract; Z98.890 Other specified postprocedural states
CPT/HCPCS: 81001; 81025; 96372; 99284; J1885; 99283

== ENCOUNTER 2019-02-01 05:56 | Emergency (ER) | payer MEDICAID ==
[~2019-02-01] VITALS: Ht 170.2 cm; Wt 120.0 kg
--- NOTE | 2019-02-01 05:58 | NUR ---
TRIAGE DELAYED. NEEDED TO EMERGENTLY GO TO THE RESTROOM FIRST.
[2019-02-01] MEDS ORDERED: ALBUTEROL SULFATE 2.5 MG/3 ML NPPB ONE (06:00)
--- NOTE | 2019-02-01 06:08 | NUR ---
PT PRESENTS TO ED C/O SOB AND CHEST TIGHTNESS SINCE 429 THIS AM. STATES HX OF ASTHMA W/ NO RELIEF FROM ALBUTEROL. NO INCREASED WOB NOTED. TALKING IN FULL SENTENCES. GIVEN 4 BABY ASPIRIN PER [facility]. ALL MONITORING APPLIED. VSS. CALL LIGHT WITHIN REACH.
[2019-02-01] MEDS ORDERED: ALBUTEROL/IPRATROPIUM 2.5MG/0.5MG, 3 ML ONE (06:23)
[2019-02-01] MEDS ORDERED: ALBUTEROL SULFATE 2.5 MG/3 ML ONE (06:24)
--- NOTE | 2019-02-01 06:56 | NUR ---
PT REPORT TO BEV BLEVINS.
--- NOTE | 2019-02-01 07:12 | NUR ---
SBAR REPORT FROM PRATIBHA BLEVINS. PT AMBULATORY TO BATHROOM WITH STEADY GAIT IN NAD.
[2019-02-01 07:58] VITALS: BP 111/77
== END 2019-02-01 08:00 | disposition home or self-care (01) ==
LOC: ED 07:58
DX: J45.31 Mild persistent asthma with (acute) exacerbation (principal)
CPT/HCPCS: 71045; 94640; 99283; J7613

== ENCOUNTER 2019-03-02 02:12 | Emergency (ER) | payer MEDICAID ==
[~2019-03-02] VITALS: Ht 170.2 cm; Wt 125.0 kg
[2019-03-02 02:16] VITALS: BP 120/64
--- NOTE | 2019-03-02 02:20 | NUR ---
bib remsa for right foot pain, given 1000mg tylenol in route by ems, call light given to pt, explained poc. awaiting md exam
== END 2019-03-02 02:58 | disposition home or self-care (01) ==
LOC: ED 02:17
DX: M79.671 Pain in right foot (principal); I10 Essential (primary) hypertension; F32.9 Major depressive disorder, single episode, unspecified; J45.909 Unspecified asthma, uncomplicated; F41.1 Generalized anxiety disorder; Z90.49 Acquired absence of other specified parts of digestive tract
CPT/HCPCS: 99283

== ENCOUNTER 2019-03-24 16:46 | Emergency (ER) | payer MEDICAID ==
[~2019-03-24] VITALS: Ht 170.2 cm; Wt 123.1 kg
[2019-03-24 16:48] VITALS: BP 146/92
== END 2019-03-24 18:54 | disposition home or self-care (01) ==
LOC: ED 17:04
DX: M79.632 Pain in left forearm (principal); M25.522 Pain in left elbow; J45.909 Unspecified asthma, uncomplicated; I10 Essential (primary) hypertension; F32.9 Major depressive disorder, single episode, unspecified; F43.10 Post-traumatic stress disorder, unspecified; Z72.9 Problem related to lifestyle, unspecified; Z90.49 Acquired absence of other specified parts of digestive tract
CPT/HCPCS: 99284

== ENCOUNTER 2019-04-09 03:25 | Emergency (ER) | payer MEDICAID ==
[~2019-04-09] VITALS: Ht 170.2 cm; Wt 125.4 kg
[2019-04-09] MEDS ORDERED: KETOROLAC 30 MG/1 ML IM ONE (04:00)
[2019-04-09] MEDS ORDERED: KETOROLAC 30 MG/1 ML ONE (04:03)
--- NOTE | 2019-04-09 04:12 | NUR ---
Pt medicated per DEC. Ice pack in place. Awaiting xray results. Call light in reach.
[2019-04-09 04:42] VITALS: BP 121/83
== END 2019-04-09 04:45 | disposition home or self-care (01) ==
LOC: ED 04:30
DX: S60.222A Contusion of left hand, initial encounter (principal); F32.9 Major depressive disorder, single episode, unspecified; J45.909 Unspecified asthma, uncomplicated; F43.10 Post-traumatic stress disorder, unspecified; F17.210 Nicotine dependence, cigarettes, uncomplicated; Z90.49 Acquired absence of other specified parts of digestive tract; W23.0XXA Caught, crushed, jammed, or pinched between moving objects, initial encounter; Y93.89 Activity, other specified; Y92.59 Other trade areas as the place of occurrence of the external cause; Y99.8 Other external cause status
CPT/HCPCS: 73130; 96372; 99283; J1885

== ENCOUNTER 2019-05-07 00:49 | Emergency (ER) | payer MEDICAID ==
[~2019-05-07] VITALS: Ht 180.3 cm; Wt 124.8 kg
--- NOTE | 2019-05-07 02:06 | NUR ---
Pt presents to ed c/o n/v and RUQ/RLQ abd painx3 weeks. States potentially , but "too early to tell" LMP unknown. Monitoring applied. Vss. Call light within reach.
[2019-05-07 02:28] LABS: BASOPHILS # (AUTO) 0.03 x10^3/uL (0-0.1); BASOPHILS % (AUTO) 0 % (0-1); EOSINOPHILS # (AUTO) 0.07 x10^3/uL (0-0.4); EOSINOPHILS % (AUTO) 1 % (1-7); LYMPHOCYTES # (AUTO) 3.03 x10^3/uL (1-3.4); LYMPHOCYTES % (AUTO) 42 % (22-44); MD NO; MEAN CORPUSCULAR HGB CONC 32.5 g/dL (32.4-35.8); MEAN CORPUSCULAR VOLUME 86.3 fL (80-100); MEAN PLATELET VOLUME 9.1 fL (7.4-10.4); MONOCYTES # (AUTO) 0.57 x10^3/uL (0.2-0.8); MONOCYTES % (AUTO) 8 % (2-9); NEUTROPHILS # (AUTO) 3.44 x10^3/uL (1.8-6.8); NEUTROPHILS % (AUTO) 48 % (42-75); PLATELET COUNT 248 x10^3/uL (130-400); RED BLOOD COUNT 4.48 x10^6/uL (3.82-5.3); RED CELL DISTRIBUTION WIDTH 16.5 % (9.6-15.2)
[2019-05-07] MEDS ORDERED: HYDROcodone/APAP 5/325 TABLET PO ONE (02:30)
[2019-05-07 02:35] LABS: ALANINE AMINOTRANSFERASE 30 U/L (12-78); ALBUMIN 3.7 g/dL (3.4-5.0); ANION GAP 7 mmol/L (5-15); CALCIUM 8.7 mg/dL (8.5-10.1); CHLORIDE 108 mmol/L (98-107); CREATININE 0.68 mg/dL (0.55-1.02)
[2019-05-07 02:40] LABS: ALKALINE PHOSPHATASE 88 U/L (45-117); BILIRUBIN,TOTAL 0.4 mg/dL (0.2-1.0); TOTAL PROTEIN 7.1 g/dL (6.4-8.2)
[2019-05-07] MEDS ORDERED: HYDROcodone/APAP 5/325 TABLET ONE (02:43)
[2019-05-07 03:06] LABS: CULTURE INDICATED? YES; MICROSCOPIC AUTO
[2019-05-07 04:06] VITALS: BP 128/83
== END 2019-05-07 04:15 | disposition home or self-care (01) ==
LOC: ED 02:35
DX: R10.9 Unspecified abdominal pain (principal); R11.2 Nausea with vomiting, unspecified; Z90.49 Acquired absence of other specified parts of digestive tract
CPT/HCPCS: 36415; 74021; 80053; 81001; 83690; 84702; 85025; 87086; 99284

== ENCOUNTER 2019-05-26 17:57 | Emergency (ER) | payer MEDICAID ==
[~2019-05-26] VITALS: Ht 170.2 cm; Wt 122.7 kg
[2019-05-26 18:41] VITALS: BP 141/88
== END 2019-05-26 20:06 | disposition home or self-care (01) ==
LOC: ED 19:41
DX: S91.112A Laceration without foreign body of left great toe without damage to nail, initial encounter (principal); G89.11 Acute pain due to trauma; F17.200 Nicotine dependence, unspecified, uncomplicated; M19.90 Unspecified osteoarthritis, unspecified site; Z75.9 Unspecified problem related to medical facilities and other health care; Z72.9 Problem related to lifestyle, unspecified; Z87.01 Personal history of pneumonia (recurrent); W22.8XXA Striking against or struck by other objects, initial encounter; Y93.01 Activity, walking, marching and hiking; Y92.89 Other specified places as the place of occurrence of the external cause; Y99.8 Other external cause status
CPT/HCPCS: 12041; 73630; 90471; 90715; 96372; 99284; J1885

== ENCOUNTER 2019-05-30 01:55 | Emergency (ER) | payer MEDICAID ==
[~2019-05-30] VITALS: Ht 170.2 cm; Wt 124.6 kg
[2019-05-30 01:57] VITALS: BP 157/93
== END 2019-05-30 02:23 | disposition home or self-care (01) ==
LOC: ED 02:15
DX: L03.114 Cellulitis of left upper limb (principal); F17.210 Nicotine dependence, cigarettes, uncomplicated; Z90.49 Acquired absence of other specified parts of digestive tract
CPT/HCPCS: 99283; Q0163

== ENCOUNTER 2019-06-02 21:14 | Emergency (ER) | payer MEDICAID ==
[~2019-06-02] VITALS: Ht 170.2 cm; Wt 125.1 kg
[2019-06-02 23:59] VITALS: BP 127/63
== END 2019-06-03 00:02 | disposition home or self-care (01) ==
LOC: ED 22:09
DX: K21.0 Gastro-esophageal reflux disease with esophagitis (principal); I10 Essential (primary) hypertension; J45.909 Unspecified asthma, uncomplicated; E66.9 Obesity, unspecified
CPT/HCPCS: 71046; 93005; 99283

== ENCOUNTER 2019-08-24 04:44 | Emergency (ER) | payer MEDICAID ==
[~2019-08-24] VITALS: Ht 170.2 cm; Wt 121.9 kg
[2019-08-24 04:46] VITALS: BP 117/82
--- NOTE | 2019-08-24 05:15 | NUR ---
PT STATES DIARRHEA STARTED AROUND 0300 AND HAS GOTTEN MORE PAINFUL. +NAUSEA, DENIES VOMITTING. PT ON CONTACT PRECAUTIONS. BED SIDE CAMMODE IN ROOM.
--- NOTE | 2019-08-24 05:17 | NUR ---
DENIES RECENT TRAVEL, ABX USE, AND HOSPITALIZATION
[2019-08-24] MEDS ORDERED: LOPERAMIDE 2 MG CAPSULE ONE (05:20)
[2019-08-24] MEDS ORDERED: ONDANSETRON ODT 4 MG ONE (05:20)
[2019-08-24] MEDS ORDERED: LOPERAMIDE 2 MG CAPSULE PO ONE (05:30)
[2019-08-24] MEDS ORDERED: ONDANSETRON ODT 4 MG PO ONE (05:30)
[2019-08-24 05:39] LABS: BASOPHILS # (AUTO) 0.03 x10^3/uL (0-0.1); BASOPHILS % (AUTO) 0 % (0-1); EOSINOPHILS % (AUTO) 1 % (1-7); LYMPHOCYTES # (AUTO) 1.75 x10^3/uL (1-3.4); LYMPHOCYTES % (AUTO) 16 % (22-44); MD NO; MEAN CORPUSCULAR HEMOGLOBIN 27.6 pg (27.0-34.8); MEAN CORPUSCULAR HGB CONC 32.4 g/dL (32.4-35.8); MEAN CORPUSCULAR VOLUME 85.4 fL (80-100); MEAN PLATELET VOLUME 8.7 fL (7.4-10.4); MONOCYTES # (AUTO) 0.53 x10^3/uL (0.2-0.8); MONOCYTES % (AUTO) 5 % (2-9); NEUTROPHILS # (AUTO) 8.24 x10^3/uL (1.8-6.8); NEUTROPHILS % (AUTO) 77 % (42-75); PLATELET COUNT 251 x10^3/uL (130-400); RED BLOOD COUNT 4.97 x10^6/uL (3.82-5.3); RED CELL DISTRIBUTION WIDTH 15.7 % (9.6-15.2)
--- NOTE | 2019-08-24 05:42 | NUR ---
PT NOT ABLE TO PROVIDE URINE SAMPLE AT THIS TIME.
[2019-08-24 05:51] LABS: ALANINE AMINOTRANSFERASE 36 U/L (12-78); ALBUMIN 3.9 g/dL (3.4-5.0); ANION GAP 7 mmol/L (5-15); CALCIUM 8.6 mg/dL (8.5-10.1); CHLORIDE 110 mmol/L (98-107); CREATININE 0.75 mg/dL (0.55-1.02)
[2019-08-24 05:55] LABS: ALKALINE PHOSPHATASE 95 U/L (45-117); BILIRUBIN,TOTAL 0.4 mg/dL (0.2-1.0); TOTAL PROTEIN 7.7 g/dL (6.4-8.2)
--- NOTE | 2019-08-24 06:40 | NUR ---
PT STILL UNABLE TO PROVIDE URINE SAMPLE
--- NOTE | 2019-08-24 06:47 | NUR ---
REPORT TO FELICITY ESPANA
== END 2019-08-24 07:25 | disposition home or self-care (01) ==
LOC: ED 05:11
DX: R19.7 Diarrhea, unspecified (principal); F17.200 Nicotine dependence, unspecified, uncomplicated
CPT/HCPCS: 36415; 74021; 80053; 83690; 84703; 85025; 93005; 99284; Q0162

== ENCOUNTER 2019-09-25 21:29 | Emergency (ER) | payer MEDICAID ==
[~2019-09-25] VITALS: Ht 170.2 cm; Wt 123.0 kg
[2019-09-25 21:32] VITALS: BP 130/93
--- NOTE | 2019-09-25 21:44 | NUR ---
PT C/O ANXIETY AND RIGHT ARM PAIN WITH HX OF SAME. PT REPORTS NO OTHER COMPLAINTS AT THIS TIME. PT RELAXED AND CONVERSING. MONITORING APPLIED. CALLED LIGHT WITHIN REACH, ALL SAFETY MEASURES IN PLACE.
[2019-09-25] MEDS ORDERED: ACETAMINOPHEN 500 MG TABLET PO ONE ×2 (22:00)
[2019-09-25] MEDS ORDERED: IBUPROFEN 600 MG TABLET PO ONE (22:00)
[2019-09-25] MEDS ORDERED: ACETAMINOPHEN 500 MG TABLET ONE (22:04)
[2019-09-25] MEDS ORDERED: IBUPROFEN 600 MG TABLET ONE (22:04)
== END 2019-09-25 22:26 | disposition home or self-care (01) ==
LOC: ED 22:11
DX: M79.631 Pain in right forearm (principal); F41.1 Generalized anxiety disorder; R94.31 Abnormal electrocardiogram [ECG] [EKG]; I10 Essential (primary) hypertension; J45.909 Unspecified asthma, uncomplicated; F17.200 Nicotine dependence, unspecified, uncomplicated; Z90.49 Acquired absence of other specified parts of digestive tract
CPT/HCPCS: 93005; 99283

== ENCOUNTER 2019-09-29 10:04 | Emergency (ER) | payer MEDICAID ==
[~2019-09-29] VITALS: Ht 170.2 cm; Wt 121.0 kg
[2019-09-29 10:11] VITALS: BP 137/73
[2019-09-29 10:50] LABS: RAPID INFLUENZA A Negative (Negative); RAPID INFLUENZA B Negative (Negative)
== END 2019-09-29 11:53 | disposition home or self-care (01) ==
LOC: ED 11:46
DX: B34.9 Viral infection, unspecified (principal); J45.909 Unspecified asthma, uncomplicated; F17.200 Nicotine dependence, unspecified, uncomplicated
CPT/HCPCS: 71046; 87081; 87400; 87880; 99284

== ENCOUNTER 2019-10-04 08:38 | Emergency (ER) | payer MEDICAID ==
[2019-10-04 08:45] VITALS: BP 120/79
--- NOTE | 2019-10-04 09:11 | NUR ---
PT TO ROOM FROM LOBBY
--- NOTE | 2019-10-04 09:53 | NUR ---
PT RETURNED FROM XR.
--- NOTE | 2019-10-04 10:00 | NUR ---
PT UPRIGHT ON GURNEY AWAKE & COMFORTABLE, PT RESPONDS APPROP TO STAFF, NAD, COMFORT MEASURES PROVIDED, CALL LIGHT WITHIN REACH.
--- NOTE | 2019-10-04 10:25 | NUR ---
Patient given discharge instructions and Rx, they have confirmed that they understand the instructions. Patient ambulatory with steady gait.
== END 2019-10-04 10:26 | disposition home or self-care (01) ==
LOC: ED 10:02
DX: J06.9 Acute upper respiratory infection, unspecified (principal); I10 Essential (primary) hypertension; J45.909 Unspecified asthma, uncomplicated; Z87.01 Personal history of pneumonia (recurrent); Z72.9 Problem related to lifestyle, unspecified; Z87.440 Personal history of urinary (tract) infections
CPT/HCPCS: 71046; 93005; 99283

== ENCOUNTER 2019-10-19 13:53 | Emergency (ER) | payer SELFPAY ==
[~2019-10-19] VITALS: Ht 170.2 cm; Wt 120.0 kg
--- NOTE | 2019-10-19 14:03 | NUR ---
airborne electronics analyst note: ekg done in triage
[2019-10-19 14:22] LABS: BASOPHILS # (AUTO) 0.01 x10^3/uL (0-0.1); BASOPHILS % (AUTO) 0 % (0-1); EOSINOPHILS # (AUTO) 0.05 x10^3/uL (0-0.4); EOSINOPHILS % (AUTO) 1 % (1-7); LYMPHOCYTES # (AUTO) 0.63 x10^3/uL (1-3.4); LYMPHOCYTES % (AUTO) 12 % (22-44); MD NO; MEAN CORPUSCULAR HEMOGLOBIN 27.4 pg (27.0-34.8); MEAN CORPUSCULAR HGB CONC 32.5 g/dL (32.4-35.8); MEAN CORPUSCULAR VOLUME 84.5 fL (80-100); MEAN PLATELET VOLUME 8.7 fL (7.4-10.4); MONOCYTES # (AUTO) 0.47 x10^3/uL (0.2-0.8); MONOCYTES % (AUTO) 9 % (2-9); NEUTROPHILS # (AUTO) 4.21 x10^3/uL (1.8-6.8); NEUTROPHILS % (AUTO) 78 % (42-75); PLATELET COUNT 241 x10^3/uL (130-400); RED BLOOD COUNT 4.62 x10^6/uL (3.82-5.3); RED CELL DISTRIBUTION WIDTH 16.3 % (9.6-15.2)
[2019-10-19 14:34] LABS: ALBUMIN 3.9 g/dL (3.4-5.0); ANION GAP 5 mmol/L (5-15); CALCIUM 8.7 mg/dL (8.5-10.1); CHLORIDE 108 mmol/L (98-107)
[2019-10-19 14:38] LABS: ALANINE AMINOTRANSFERASE 39 U/L (12-78); ALKALINE PHOSPHATASE 85 U/L (45-117); CREATININE 0.84 mg/dL (0.55-1.02); TOTAL PROTEIN 7.2 g/dL (6.4-8.2)
--- NOTE | 2019-10-19 15:03 | NUR ---
PT TO RM FROM LOBBY AT THIS TIME
[2019-10-19 15:29] VITALS: BP 107/64
== END 2019-10-19 15:57 | disposition home or self-care (01) ==
LOC: ED 15:50
DX: T40.2X1A Poisoning by other opioids, accidental (unintentional), initial encounter (principal); R41.82 Altered mental status, unspecified; Y92.89 Other specified places as the place of occurrence of the external cause
CPT/HCPCS: 36415; 71046; 80053; 85025; 85379; 93005; 99284

== ENCOUNTER 2019-10-30 20:59 | Emergency (ER) | payer OTHER ==
[~2019-10-30] VITALS: Ht 170.2 cm; Wt 119.7 kg
[2019-10-30 21:15] VITALS: BP 137/90
--- NOTE | 2019-10-30 21:50 | NUR ---
PT PRESENTED WITH C/O ABDOMINAL CRAMPING, N/V AND VAGINAL BLEEDING/DISCHARGE X 2 WEEKS. STATED SHE HAD A SLIGHTLY POSITIVE HOME TEST, UNKNOWN WHEN HER LMP WAS. PT RESTING ON GURNEY, MONITORS APPLIED, SIDERAILS UP X2, CALL LIGHT WITHIN REACH. PA AT [facility] MAIA CHANEY
--- NOTE | 2019-10-30 21:52 | NUR ---
urine sample sent
[2019-10-30 22:12] LABS: BASOPHILS # (AUTO) 0.06 x10^3/uL (0-0.1); BASOPHILS % (AUTO) 1 % (0-1); EOSINOPHILS % (AUTO) 1 % (1-7); LYMPHOCYTES # (AUTO) 2.25 x10^3/uL (1-3.4); LYMPHOCYTES % (AUTO) 33 % (22-44); MD NO; MEAN CORPUSCULAR HGB CONC 32.1 g/dL (32.4-35.8); MEAN CORPUSCULAR VOLUME 83.9 fL (80-100); MONOCYTES # (AUTO) 0.53 x10^3/uL (0.2-0.8); MONOCYTES % (AUTO) 8 % (2-9); NEUTROPHILS % (AUTO) 56 % (42-75); PLATELET COUNT 254 x10^3/uL (130-400); RED BLOOD COUNT 4.55 x10^6/uL (3.82-5.3); RED CELL DISTRIBUTION WIDTH 16.5 % (9.6-15.2)
[2019-10-30 22:15] LABS: MICROSCOPIC NOT IND
[2019-10-30 22:18] LABS: CULTURE INDICATED? NO
[2019-10-30 22:24] LABS: ALANINE AMINOTRANSFERASE 36 U/L (12-78); ALBUMIN 3.2 g/dL (3.4-5.0); ANION GAP 7 mmol/L (5-15); CALCIUM 8.9 mg/dL (8.5-10.1); CHLORIDE 111 mmol/L (98-107); CREATININE 0.68 mg/dL (0.55-1.02)
[2019-10-30 22:29] LABS: ALKALINE PHOSPHATASE 97 U/L (45-117); BILIRUBIN,TOTAL 0.3 mg/dL (0.2-1.0); TOTAL PROTEIN 6.5 g/dL (6.4-8.2)
== END 2019-10-30 22:57 | disposition home or self-care (01) ==
LOC: ED 22:55
DX: N94.4 Primary dysmenorrhea (principal); F17.210 Nicotine dependence, cigarettes, uncomplicated; I10 Essential (primary) hypertension; J45.909 Unspecified asthma, uncomplicated
CPT/HCPCS: 36415; 80053; 81003; 84702; 85025; 86901; 99283

== ENCOUNTER 2019-12-05 19:43 | Emergency (ER) | payer SELFPAY ==
[~2019-12-05] VITALS: Ht 170.2 cm; Wt 120.6 kg
[~2019-12-05 19:43] MED LIST changes: +HYDR-2995 PO; -HYDR10TA4 PO
--- NOTE | 2019-12-05 20:40 | NUR ---
pt to room from lobby
--- NOTE | 2019-12-05 20:57 | NUR ---
PT HERE WITH C/O BURNING URINATION, PAINFUL SEX, AND ITCHINESS IN PERINEAL REGION. PT STATES SYMPTOMS STARTED THIS AM. PT AAO X 4, NAD, ROOM AIR, DRESSED IN GOWN AND ON FULL MONITOR. SIDERAIL X [address], CALL LIGHT WITHIN REACH. UA SENT AND PELVIC AT BEDSIDE AND READY.
--- NOTE | 2019-12-05 21:09 | NUR ---
REPORT GIVEN TO FELICITY GUNN. CARE TRANSFERRED.
--- NOTE | 2019-12-05 21:14 | NUR ---
RECEIVED BEDSIDE REPORT AND CARE FROM WINDY BLEVINS. PT RESTING IN POSITION OF COMFORT. VSS. DR. PETTIT AT BEDSIDE FOR EVALUATION, AWAITING ORDERS. CALL LIGHT IN REACH. FALL PRECAUTIONS IN PLACE.
[2019-12-05 21:21] LABS: HCG UR SG 1.022 (1.003-1.030); MICROSCOPIC AUTO
[2019-12-05 21:26] LABS: CULTURE INDICATED? NO
--- NOTE | 2019-12-05 21:35 | NUR ---
PT AWAITING PELVIC EXAM, ON PELVIC BED AND EXAM SUPPLIES SET UP. REPORTS 07/28 VAGINAL "PAIN, ITCHING, BURNING." DISCUSSED WITH DR. PETTIT AWARE, NO NEW ORDERS RECEIVED. MD TO COMPLETE PELVIC WITH ASSISTANCE FROM THIS RN. CALL LIGHT IN REACH. FALL PRECUATIONS IN PLACE. SIGNIFICANT OTHER AT BEDSIDE. VSS.
--- NOTE | 2019-12-05 21:55 | NUR ---
PELVIC EXAM COMPLETED AT THIS TIME BY DR. PETTIT. EXAM SWABS WALKED TO LAB. PT TOLERATED WELL. RESTING COMFORTABLY. VSS. CALL LIGHT IN REACH. FALL PRECAUTIONS IN PLACE
[2019-12-05 22:35] LABS: CLUE CELLS NONE SEEN (NONE SEEN); WET PREP WBCS FEW (FEW)
--- NOTE | 2019-12-05 22:50 | NUR ---
JENY RN AT BEDSIDE TO ASSIST WITH PT DISCHARGE. VSS. NAD NOTED. DENIES NEED TO USE RESTROOM.
--- NOTE | 2019-12-05 22:57 | NUR ---
DR. PETTIT AT BEDSIDE FOR RECHECK.
--- NOTE | 2019-12-05 22:58 | NUR ---
Patient/Caregiver given discharge instructions and they have confirmed that they understand the instructions. Patient ambulatory with steady gait.
== END 2019-12-05 23:00 | disposition home or self-care (01) ==
LOC: ED 22:54
DX: B37.3 Candidiasis of vulva and vagina (principal); R11.2 Nausea with vomiting, unspecified; J45.909 Unspecified asthma, uncomplicated; F17.200 Nicotine dependence, unspecified, uncomplicated
CPT/HCPCS: 81001; 81025; 87210; 87491; 87591; 87808; 99283

== ENCOUNTER 2020-01-02 18:01 | Emergency (ER) | payer MEDICAID ==
[~2020-01-02] VITALS: Ht 170.2 cm; Wt 120.0 kg
[2020-01-02 20:33] VITALS: BP 119/77
== END 2020-01-02 21:21 | disposition home or self-care (01) ==
LOC: ED 21:00
DX: M79.672 Pain in left foot (principal); F17.200 Nicotine dependence, unspecified, uncomplicated
CPT/HCPCS: 99283

== ENCOUNTER 2020-02-21 21:06 | Emergency (ER) | payer SELFPAY ==
[~2020-02-21] VITALS: Ht 170.2 cm; Wt 115.0 kg
[2020-02-21] MEDS ORDERED: ACETAMINOPHEN 500 MG TABLET PO ONE (21:30)
--- NOTE | 2020-02-21 21:59 | NUR ---
Patient BIB [facility] c/o bilat flank pain x2 months, gradually increasing. Patient was seen for same prior to this visit and dx with cysts. She has an appt on 03/05 but states the pain was increasing. Patient is in NAD. REspirations even and unlabored.
[2020-02-21 22:03] LABS: ALBUMIN 3.4 g/dL (3.4-5.0); ANION GAP 5 mmol/L (5-15); BASOPHILS # (AUTO) 0.02 x10^3/uL (0-0.1); BASOPHILS % (AUTO) 0 % (0-1); CALCIUM 8.2 mg/dL (8.5-10.1); CHLORIDE 108 mmol/L (98-107); CREATININE 0.72 mg/dL (0.55-1.02); EOSINOPHILS % (AUTO) 1 % (1-7); LYMPHOCYTES # (AUTO) 2.83 x10^3/uL (1-3.4); LYMPHOCYTES % (AUTO) 38 % (22-44); MD NO; MEAN CORPUSCULAR HEMOGLOBIN 26.8 pg (27.0-34.8); MEAN CORPUSCULAR HGB CONC 32.5 g/dL (32.4-35.8); MEAN CORPUSCULAR VOLUME 82.4 fL (80-100); MEAN PLATELET VOLUME 8.9 fL (7.4-10.4); MONOCYTES # (AUTO) 0.45 x10^3/uL (0.2-0.8); MONOCYTES % (AUTO) 6 % (2-9); NEUTROPHILS # (AUTO) 3.98 x10^3/uL (1.8-6.8); NEUTROPHILS % (AUTO) 54 % (42-75); PLATELET COUNT 263 x10^3/uL (130-400); RED BLOOD COUNT 4.44 x10^6/uL (3.82-5.3)
[2020-02-21] MEDS ORDERED: ACETAMINOPHEN 500 MG TABLET ONE (22:40)
[2020-02-21 22:41] LABS: MICROSCOPIC NOT IND
[2020-02-21 22:43] VITALS: BP 105/45
[2020-02-21 22:48] LABS: CULTURE INDICATED? NO
--- NOTE | 2020-02-21 23:20 | NUR ---
Discharge instructions given. All questions and concerns addressed. Patient ambulatory with a steady gait. Belongings with patient.
== END 2020-02-21 23:22 ==
LOC: ED 23:15
DX: R10.9 Unspecified abdominal pain (principal); F17.200 Nicotine dependence, unspecified, uncomplicated; I10 Essential (primary) hypertension; J45.909 Unspecified asthma, uncomplicated; Z90.49 Acquired absence of other specified parts of digestive tract
CPT/HCPCS: 36415; 80048; 81003; 82040; 84703; 85025; 99283

== ENCOUNTER 2020-04-06 08:31 | Emergency (ER) | payer SELFPAY ==
[~2020-04-06] VITALS: Ht 170.2 cm; Wt 124.4 kg
[2020-04-06 08:34] VITALS: BP 134/87
[2020-04-06] MEDS ORDERED: NYSTATIN TOPICAL POWDER 15GM TP ONE (09:00)
--- NOTE | 2020-04-06 09:01 | NUR ---
Meds requested from pharmacy.
== END 2020-04-06 09:35 | disposition home or self-care (01) ==
LOC: ED 09:12
DX: B37.2 Candidiasis of skin and nail (principal); R21 Rash and other nonspecific skin eruption; Z88.0 Allergy status to penicillin; Z88.9 Allergy status to unspecified drugs, medicaments and biological substances
CPT/HCPCS: 99282; 99283

== ENCOUNTER 2020-04-11 19:56 | Emergency (ER) | payer MEDICAID, OTHER ==
[~2020-04-11] VITALS: Ht 170.2 cm; Wt 124.8 kg
--- NOTE | 2020-04-11 20:18 | NUR ---
SAME TRIAGE NOTE. PT STATES SHE MIGHT BE . . C/O N/V SINCE LAST NIGHT.
--- NOTE | 2020-04-11 20:21 | NUR ---
ERP WAS IN TO SEE PT.
--- NOTE | 2020-04-11 20:40 | NUR ---
PT TO US VIA [facility].
[2020-04-11 20:53] LABS: BASOPHILS # (AUTO) 0.02 x10^3/uL (0-0.1); BASOPHILS % (AUTO) 0 % (0-1); EOSINOPHILS # (AUTO) 0.08 x10^3/uL (0-0.4); EOSINOPHILS % (AUTO) 1 % (1-7); LYMPHOCYTES # (AUTO) 2.36 x10^3/uL (1-3.4); LYMPHOCYTES % (AUTO) 33 % (22-44); MD NO; MEAN CORPUSCULAR HEMOGLOBIN 26.7 pg (27.0-34.8); MEAN CORPUSCULAR HGB CONC 32.3 g/dL (32.4-35.8); MEAN CORPUSCULAR VOLUME 82.7 fL (80-100); MONOCYTES # (AUTO) 0.55 x10^3/uL (0.2-0.8); MONOCYTES % (AUTO) 8 % (2-9); NEUTROPHILS # (AUTO) 4.18 x10^3/uL (1.8-6.8); NEUTROPHILS % (AUTO) 58 % (42-75); PLATELET COUNT 236 x10^3/uL (130-400); RED BLOOD COUNT 4.54 x10^6/uL (3.82-5.3); RED CELL DISTRIBUTION WIDTH 17.9 % (9.6-15.2)
[2020-04-11 20:54] LABS: ALANINE AMINOTRANSFERASE 35 U/L (12-78); ALBUMIN 3.4 g/dL (3.4-5.0); ANION GAP 8 mmol/L (5-15); CALCIUM 8.5 mg/dL (8.5-10.1); CHLORIDE 112 mmol/L (98-107)
[2020-04-11 21:12] LABS: ALKALINE PHOSPHATASE 63 U/L (45-117); BILIRUBIN,TOTAL 0.4 mg/dL (0.2-1.0); TOTAL PROTEIN 6.6 g/dL (6.4-8.2)
--- NOTE | 2020-04-11 21:19 | NUR ---
PT RETURNS FROM US. STATES SHE WAS ONLY ABLE TO VOID A SMALL AMOUNT OF CLOUDY CONCENTRATED URINE. SAMPLE SENT TO LAB.
[2020-04-11 21:34] LABS: MICROSCOPIC INDICATED
[2020-04-11] MEDS ORDERED: ONDANSETRON ODT 4 MG ONE (21:53)
[2020-04-11] MEDS ORDERED: NITROFURANTOIN (MACROBID) 100 MG CAPSULE ONE (21:53)
[2020-04-11 22:00] VITALS: BP 123/65
[2020-04-11] MEDS ORDERED: ONDANSETRON ODT 4 MG PO ONE (22:00)
--- NOTE | 2020-04-11 22:07 | NUR ---
ERP WAS IN FOR RECHECK AND RV'WD POC WITH PT. PT MEDICATED WITH ZOFRAN FOR NAUSEA. REPORTED TO DAHIANA BLEVINS.
[2020-04-11] MEDS ORDERED: NITROFURANTOIN (MACROBID) 100 MG CAPSULE PO ONE (22:30)
== END 2020-04-11 22:30 | disposition home or self-care (01) ==
LOC: ED 21:40
DX: O23.12 Infections of bladder in pregnancy, second trimester (principal); R11.2 Nausea with vomiting, unspecified; R10.2 Pelvic and perineal pain; R10.32 Left lower quadrant pain; R10.31 Right lower quadrant pain; I10 Essential (primary) hypertension; J45.909 Unspecified asthma, uncomplicated; M19.90 Unspecified osteoarthritis, unspecified site; Z90.49 Acquired absence of other specified parts of digestive tract; Z3A.01 Less than 8 weeks gestation of pregnancy
CPT/HCPCS: 36415; 76830; 80053; 81001; 83690; 84702; 85025; 87086; 99284; Q0162; 84703

== ENCOUNTER 2020-04-15 23:40 | Emergency (ER) | payer MEDICAID ==
[~2020-04-15] VITALS: Ht 170.2 cm; Wt 124.0 kg
[2020-04-15] MEDS ORDERED: ESCI10TA10 PO (23:50)
--- NOTE | 2020-04-16 00:25 | NUR ---
PT IN ULTRASOUND.
[2020-04-16 00:35] LABS: BASOPHILS # (AUTO) 0.03 x10^3/uL (0-0.1); BASOPHILS % (AUTO) 1 % (0-1); EOSINOPHILS # (AUTO) 0.15 x10^3/uL (0-0.4); EOSINOPHILS % (AUTO) 2 % (1-7); LYMPHOCYTES # (AUTO) 2.64 x10^3/uL (1-3.4); LYMPHOCYTES % (AUTO) 38 % (22-44); MD NO; MEAN CORPUSCULAR HEMOGLOBIN 26.6 pg (27.0-34.8); MEAN CORPUSCULAR HGB CONC 32.6 g/dL (32.4-35.8); MEAN PLATELET VOLUME 9.4 fL (7.4-10.4); MONOCYTES # (AUTO) 0.46 x10^3/uL (0.2-0.8); MONOCYTES % (AUTO) 7 % (2-9); NEUTROPHILS # (AUTO) 3.73 x10^3/uL (1.8-6.8); NEUTROPHILS % (AUTO) 53 % (42-75); PLATELET COUNT 208 x10^3/uL (130-400); RED BLOOD COUNT 4.41 x10^6/uL (3.82-5.3); RED CELL DISTRIBUTION WIDTH 17.7 % (9.6-15.2)
[2020-04-16 00:49] LABS: ALBUMIN 3.3 g/dL (3.4-5.0); ANION GAP 5 mmol/L (5-15); CALCIUM 8.1 mg/dL (8.5-10.1); CHLORIDE 107 mmol/L (98-107)
[2020-04-16 01:07] LABS: ALANINE AMINOTRANSFERASE 32 U/L (12-78); ALKALINE PHOSPHATASE 71 U/L (45-117); BILIRUBIN,TOTAL 0.5 mg/dL (0.2-1.0); CREATININE 0.72 mg/dL (0.55-1.02); TOTAL PROTEIN 6.5 g/dL (6.4-8.2)
--- NOTE | 2020-04-16 01:16 | NUR ---
URINE SAMPLE COLLECTED.
[2020-04-16] MEDS ORDERED: ONDANSETRON ODT 8 MG ONE (01:21)
[2020-04-16] MEDS ORDERED: ONDANSETRON ODT 4 MG PO ONE (01:30)
[2020-04-16 01:34] VITALS: BP 107/37
[2020-04-16 01:34] LABS: MICROSCOPIC NOT IND
== END 2020-04-16 02:16 | disposition home or self-care (01) ==
LOC: ED 04-16 02:14
DX: O20.0 Threatened abortion (principal); O10.911 Unspecified pre-existing hypertension complicating pregnancy, first trimester; O99.511 Diseases of the respiratory system complicating pregnancy, first trimester; J45.909 Unspecified asthma, uncomplicated; Z3A.01 Less than 8 weeks gestation of pregnancy; Z90.49 Acquired absence of other specified parts of digestive tract
CPT/HCPCS: 36415; 76801; 80053; 81003; 84702; 85025; 99284; Q0162

== ENCOUNTER 2020-04-30 23:10 | Emergency (ER) | payer MEDICAID ==
[~2020-04-30] VITALS: Ht 170.2 cm; Wt 125.0 kg
[~2020-04-30 23:10] MED LIST changes: +ESCI10TA10 PO
--- NOTE | 2020-04-30 23:31 | NUR ---
PT PROVIDED WITH URINE CUP AND INSTRUCTIONS FOR SAMPLE COLLECTION. PT VERBALIZES UNDERSTANDING. PROVIDED WITH WATER PER REQUEST. CALL LIGHT IN REACH.
[2020-04-30 23:53] LABS: MICROSCOPIC NOT IND
--- NOTE | 2020-04-30 23:54 | NUR ---
URINE SAMPLE COLLECTED AND SENT. PT DENIES ANY FURTHER NEEDS OR CONCERNS AT THIS TIME, CALL LIGHT IN REACH.
--- NOTE | 2020-05-01 00:40 | NUR ---
PT CONTINUES IN IMAGING AT THIS TIME.
[2020-05-01 01:23] VITALS: BP 115/64
[2020-05-01] MEDS ORDERED: ACETAMINOPHEN 500 MG TABLET ONE (01:25)
[2020-05-01] MEDS ORDERED: ONDANSETRON ODT 4 MG ONE (01:25)
[2020-05-01] MEDS ORDERED: ACETAMINOPHEN 500 MG TABLET PO ONE (01:30)
[2020-05-01] MEDS ORDERED: ONDANSETRON ODT 4 MG PO ONE (01:30)
--- NOTE | 2020-05-01 02:04 | NUR ---
REPORT RECEIVED FROM FELICITY MCGRATH. ASSUMED CARE OF PT
--- NOTE | 2020-05-01 02:16 | NUR ---
Patient/Caregiver given discharge instructions and they have confirmed that they understand the instructions. Patient ambulatory with steady gait.
== END 2020-05-01 02:18 | disposition home or self-care (01) ==
LOC: ED 23:31
DX: O26.891 Other specified pregnancy related conditions, first trimester (principal); R11.2 Nausea with vomiting, unspecified; R10.30 Lower abdominal pain, unspecified; Z3A.01 Less than 8 weeks gestation of pregnancy; I10 Essential (primary) hypertension; J45.909 Unspecified asthma, uncomplicated; M19.90 Unspecified osteoarthritis, unspecified site; Z90.49 Acquired absence of other specified parts of digestive tract; Z87.891 Personal history of nicotine dependence
CPT/HCPCS: 36415; 76801; 81003; 84702; 99284

== ENCOUNTER 2020-05-12 00:50 | Emergency (ER) | payer MEDICAID ==
[~2020-05-12] VITALS: Ht 170.2 cm; Wt 125.0 kg
[2020-05-12 00:52] VITALS: BP 133/69
[2020-05-12 01:15] LABS: MICROSCOPIC INDICATED
--- NOTE | 2020-05-12 01:21 | NUR ---
TASK RN: URINE PENDING AWAITING RESULTS PT RESTING NADN
== END 2020-05-12 02:04 | disposition home or self-care (01) ==
LOC: ED 00:58
DX: O26.891 Other specified pregnancy related conditions, first trimester (principal); O21.9 Vomiting of pregnancy, unspecified; R10.30 Lower abdominal pain, unspecified; M54.5 Low back pain; O99.511 Diseases of the respiratory system complicating pregnancy, first trimester; O10.911 Unspecified pre-existing hypertension complicating pregnancy, first trimester; J45.909 Unspecified asthma, uncomplicated; Z3A.09 9 weeks gestation of pregnancy; Z90.49 Acquired absence of other specified parts of digestive tract
CPT/HCPCS: 81001; 99283

== ENCOUNTER 2020-05-16 05:16 | Emergency (ER) | payer MEDICAID ==
[~2020-05-16] VITALS: Ht 170.2 cm; Wt 125.0 kg
[2020-05-16 05:18] VITALS: BP 105/78
--- NOTE | 2020-05-16 05:20 | NUR ---
PETE, PT REPORTS BEING 10 WEEKS ,, AND C/O ABDOMINAL PAIN EXTENDING INTO FLANK, ALSO C/O PANIC ATTACKS
[2020-05-16] MEDS ORDERED: SODIUM CHLORIDE 0.9% 1,000ML IVBOLUS ONE (05:30)
[2020-05-16 05:51] LABS: BASOPHILS # (AUTO) 0.04 x10^3/uL (0-0.1); BASOPHILS % (AUTO) 0 % (0-1); EOSINOPHILS # (AUTO) 0.09 x10^3/uL (0-0.4); EOSINOPHILS % (AUTO) 1 % (1-7); LYMPHOCYTES # (AUTO) 2.23 x10^3/uL (1-3.4); LYMPHOCYTES % (AUTO) 27 % (22-44); MD NO; MEAN CORPUSCULAR HEMOGLOBIN 26.4 pg (27.0-34.8); MEAN CORPUSCULAR HGB CONC 32.6 g/dL (32.4-35.8); MEAN PLATELET VOLUME 9.1 fL (7.4-10.4); MONOCYTES # (AUTO) 0.63 x10^3/uL (0.2-0.8); MONOCYTES % (AUTO) 8 % (2-9); NEUTROPHILS # (AUTO) 5.28 x10^3/uL (1.8-6.8); NEUTROPHILS % (AUTO) 64 % (42-75); PLATELET COUNT 238 x10^3/uL (130-400); RED BLOOD COUNT 4.71 x10^6/uL (3.82-5.3); RED CELL DISTRIBUTION WIDTH 17.4 % (9.6-15.2)
[2020-05-16 05:52] LABS: MICROSCOPIC INDICATED
[2020-05-16] MEDS ORDERED: CEFTRIAXONE PMX 1GM/50ML 50 ML ONE (06:28)
[2020-05-16] MEDS ORDERED: CEFTRIAXONE PMX 1GM/50ML 50 ML IV ONE (06:30)
--- NOTE | 2020-05-16 06:49 | NUR ---
REPORT FROM PAL
--- NOTE | 2020-05-16 07:04 | NUR ---
PT BACK FROM US.
--- NOTE | 2020-05-16 07:35 | NUR ---
Patient/Caregiver given discharge instructions and they have confirmed that they understand the instructions. Patient ambulatory with steady gait.
== END 2020-05-16 07:37 | disposition home or self-care (01) ==
LOC: ED 06:31
DX: O23.41 Unspecified infection of urinary tract in pregnancy, first trimester (principal); O10.911 Unspecified pre-existing hypertension complicating pregnancy, first trimester; O46.91 Antepartum hemorrhage, unspecified, first trimester; R10.30 Lower abdominal pain, unspecified; F41.9 Anxiety disorder, unspecified; Z3A.09 9 weeks gestation of pregnancy
CPT/HCPCS: 36415; 76801; 81001; 84702; 85025; 87086; 93005; 96365; 99285; J0696; J7030

== ENCOUNTER 2020-05-25 02:58 | Emergency (ER) | payer MEDICAID ==
[~2020-05-25] VITALS: Ht 170.2 cm; Wt 125.0 kg
[2020-05-25 03:01] VITALS: BP 130/78
--- NOTE | 2020-05-25 03:14 | NUR ---
[place] [facility] [place] ankle pain since yesterday and occassional lightheadedness. Pt reports she is 11 weeks . Pt is able to bear weight. Pt educated on fluid intake and rest while . CMS intact, no deformity to left ankle. VSS. PA at bedside.
--- NOTE | 2020-05-25 03:46 | NUR ---
Pt d/c'd to self care. Pt alert, oriented and ambulatory. NAD. Pt educated on home care, and follow-up. Pt VU. Pt ambulatory out of ER.
== END 2020-05-25 03:48 | disposition home or self-care (01) ==
LOC: ED 03:04
DX: M25.572 Pain in left ankle and joints of left foot (principal); I10 Essential (primary) hypertension; J45.909 Unspecified asthma, uncomplicated
CPT/HCPCS: 99283

== ENCOUNTER 2020-05-29 19:09 | Emergency (ER) | payer MEDICAID ==
[~2020-05-29] VITALS: Ht 170.2 cm; Wt 127.0 kg
[2020-05-29 21:04] LABS: BASOPHILS # (AUTO) 0.02 x10^3/uL (0-0.1); BASOPHILS % (AUTO) 0 % (0-1); EOSINOPHILS # (AUTO) 0.13 x10^3/uL (0-0.4); EOSINOPHILS % (AUTO) 2 % (1-7); LYMPHOCYTES # (AUTO) 1.72 x10^3/uL (1-3.4); LYMPHOCYTES % (AUTO) 25 % (22-44); MD NO; MEAN CORPUSCULAR HEMOGLOBIN 25.9 pg (27.0-34.8); MEAN CORPUSCULAR VOLUME 81.1 fL (80-100); MEAN PLATELET VOLUME 9.4 fL (7.4-10.4); MONOCYTES # (AUTO) 0.53 x10^3/uL (0.2-0.8); MONOCYTES % (AUTO) 8 % (2-9); NEUTROPHILS # (AUTO) 4.62 x10^3/uL (1.8-6.8); NEUTROPHILS % (AUTO) 66 % (42-75); PLATELET COUNT 211 x10^3/uL (130-400); RED BLOOD COUNT 4.47 x10^6/uL (3.82-5.3); RED CELL DISTRIBUTION WIDTH 17.1 % (9.6-15.2)
[2020-05-29 21:12] LABS: ANION GAP 6 mmol/L (5-15); CALCIUM 8.8 mg/dL (8.5-10.1); CHLORIDE 109 mmol/L (98-107); CREATININE 0.57 mg/dL (0.55-1.02)
--- NOTE | 2020-05-29 21:54 | NUR ---
PT TO ROOM FROM LOBBY
[2020-05-29 22:21] VITALS: BP 120/66
--- NOTE | 2020-05-29 22:21 | NUR ---
PT CAME IN CO OF CHEST PAIN AND TINGLINGIN HER HER HANDS THAT STARTED TODAY AT HOME AT ABOUT 1830. EKG COMPLETE. LABS DRAWN. UA SENT. PT RESTING IN [facility] CONNECTED TO MONITORING EQUIPMENT
[2020-05-29 22:32] LABS: MICROSCOPIC NOT IND
== END 2020-05-29 23:36 | disposition home or self-care (01) ==
LOC: ED 22:19
DX: O26.891 Other specified pregnancy related conditions, first trimester (principal); R07.89 Other chest pain; R06.02 Shortness of breath; R94.31 Abnormal electrocardiogram [ECG] [EKG]; F41.1 Generalized anxiety disorder; I10 Essential (primary) hypertension; J45.909 Unspecified asthma, uncomplicated; M19.90 Unspecified osteoarthritis, unspecified site; Z90.49 Acquired absence of other specified parts of digestive tract; Z87.891 Personal history of nicotine dependence; Z3A.12 12 weeks gestation of pregnancy
CPT/HCPCS: 36415; 71046; 80048; 81003; 85025; 93005; 99285

== ENCOUNTER 2020-05-31 22:00 | Emergency (ER) | payer MEDICAID ==
[~2020-05-31] VITALS: Ht 170.2 cm; Wt 123.7 kg
[2020-05-31 22:11] VITALS: BP 121/76
== END 2020-05-31 23:08 | disposition home or self-care (01) ==
LOC: ED 23:05
DX: S80.812A Abrasion, left lower leg, initial encounter (principal); L03.116 Cellulitis of left lower limb; I10 Essential (primary) hypertension; J45.909 Unspecified asthma, uncomplicated; M19.90 Unspecified osteoarthritis, unspecified site; W19.XXXA Unspecified fall, initial encounter; Y93.89 Activity, other specified; Y92.098 Other place in other non-institutional residence as the place of occurrence of the external cause; Y99.8 Other external cause status
CPT/HCPCS: 99283

== ENCOUNTER 2020-06-11 21:11 | Emergency (ER) | payer MEDICAID ==
[~2020-06-11] VITALS: Ht 170.2 cm; Wt 120.0 kg
--- NOTE | 2020-06-11 22:35 | NUR ---
[facility]ERAL HOME LOCATION MANAGER: PT TO ROOM FROM LOBBY
--- NOTE | 2020-06-11 22:51 | NUR ---
Pt here for a sore throat, pt is concerned because she is .
[2020-06-11 23:20] VITALS: BP 121/64
--- NOTE | 2020-06-11 23:26 | NUR ---
Patient/Caregiver given discharge instructions and they have confirmed that they understand the instructions. Patient ambulatory with steady gait.
== END 2020-06-11 23:31 | disposition home or self-care (01) ==
LOC: ED 23:14
DX: O23.42 Unspecified infection of urinary tract in pregnancy, second trimester (principal); J02.9 Acute pharyngitis, unspecified; R00.0 Tachycardia, unspecified; J45.909 Unspecified asthma, uncomplicated; M19.90 Unspecified osteoarthritis, unspecified site; Z90.49 Acquired absence of other specified parts of digestive tract; Z3A.14 14 weeks gestation of pregnancy
CPT/HCPCS: 87081; 87880; 99283

== ENCOUNTER 2020-06-15 12:59 | Emergency (ER) | payer MEDICAID ==
[~2020-06-15] VITALS: Ht 170.2 cm; Wt 124.0 kg
[2020-06-15] MEDS ORDERED: ALBU90AE INH (13:58)
[2020-06-15] MEDS ORDERED: PREN1TAB28 PO (13:59)
[2020-06-15 14:17] LABS: MICROSCOPIC INDICATED
[2020-06-15 14:39] VITALS: BP 114/62
--- NOTE | 2020-06-15 16:01 | NUR ---
Patient given discharge instructions and they have confirmed that they understand the instructions. Patient ambulatory with steady gait.
== END 2020-06-15 16:02 | disposition home or self-care (01) ==
LOC: ED 14:04
DX: O23.42 Unspecified infection of urinary tract in pregnancy, second trimester (principal); O10.912 Unspecified pre-existing hypertension complicating pregnancy, second trimester; O99.512 Diseases of the respiratory system complicating pregnancy, second trimester; J45.909 Unspecified asthma, uncomplicated; Z3A.16 16 weeks gestation of pregnancy; Z90.49 Acquired absence of other specified parts of digestive tract
CPT/HCPCS: 81001; 87077; 87086; 87186; 99283

== ENCOUNTER 2020-06-26 14:20 | Emergency (ER) | payer MEDICAID ==
[~2020-06-26] VITALS: Ht 170.2 cm; Wt 118.2 kg
[~2020-06-26 14:20] MED LIST changes: +ALBU90AE INH; +PREN1TAB28 PO
[2020-06-26 14:28] VITALS: BP 125/67
[2020-06-26] MEDS ORDERED: CYCLOBENZAPRINE 10 MG TABLET PO ONE (14:30)
[2020-06-26] MEDS ORDERED: ACETAMINOPHEN 500 MG TABLET PO ONE (14:30)
--- NOTE | 2020-06-26 14:32 | NUR ---
TASK RN: [facility] FROM HOME. LBP X 24HRS, 17WKS LMP 03/06/20 DENIES VAGINAL BLEEDING, DENIES CRAMPING. DR GALEAS AT BEDSIDE, PT ASSESSMENT, POC DISCUSSED AND ORDERS REC'D. PT OOB AND AMBULATED TO BATHROOM, UPRIGHT STEADY GAIT. INSTRUCTED ON COLLECTION ON CC URINE SAMPLE. SBAR RPT TO FELICITY ALBERTS
[2020-06-26] MEDS ORDERED: ACETAMINOPHEN 500 MG TABLET ONE (14:39)
[2020-06-26] MEDS ORDERED: CYCLOBENZAPRINE 10 MG TABLET ONE (14:39)
[2020-06-26 14:46] LABS: MICROSCOPIC NOT IND
--- NOTE | 2020-06-26 15:26 | NUR ---
Patient given discharge instructions and they have confirmed that they understand the instructions. Patient ambulatory with steady gait.
== END 2020-06-26 15:37 | disposition home or self-care (01) ==
LOC: ED 15:09
DX: O26.892 Other specified pregnancy related conditions, second trimester (principal); S39.012A Strain of muscle, fascia and tendon of lower back, initial encounter; I10 Essential (primary) hypertension; J45.909 Unspecified asthma, uncomplicated; Z3A.16 16 weeks gestation of pregnancy; X58.XXXA Exposure to other specified factors, initial encounter; Y93.89 Activity, other specified; Y92.89 Other specified places as the place of occurrence of the external cause; Y99.8 Other external cause status
CPT/HCPCS: 81003; 99283

== ENCOUNTER 2020-07-03 22:03 | Emergency (ER) | payer MEDICAID ==
[~2020-07-03] VITALS: Ht 170.2 cm; Wt 127.0 kg
--- NOTE | 2020-07-03 22:27 | NUR ---
PT TO ED WITH RIGHT FOOT PAIN, REPORTS PAIN X2-3 WEEKS WITH AMBULATION. NO GROSS DEFORMITIES NOTED. DENIES ANY OTHER MEDICAL C/O AT THIS TIME. PT PLACED ON MONITORING, CALL LIGHT WITHIN REACH, ALL SAFETY MEASURES IN PLACE
[2020-07-03 23:14] VITALS: BP 133/74
--- NOTE | 2020-07-03 23:17 | NUR ---
PT UPDATED ON POC, DENIES FURTHER NEEDS AT THIS TIME.
== END 2020-07-04 00:35 | disposition home or self-care (01) ==
LOC: ED 22:38
DX: O26.892 Other specified pregnancy related conditions, second trimester (principal); M79.671 Pain in right foot; I10 Essential (primary) hypertension; Z3A.19 19 weeks gestation of pregnancy; X58.XXXA Exposure to other specified factors, initial encounter; Y93.89 Activity, other specified; Y92.009 Unspecified place in unspecified non-institutional (private) residence as the place of occurrence of the external cause; Y99.8 Other external cause status
CPT/HCPCS: 99284

== ENCOUNTER 2020-07-14 22:57 | Emergency (ER) | payer MEDICAID ==
[~2020-07-14] VITALS: Ht 170.2 cm; Wt 127.0 kg
[2020-07-14 23:01] VITALS: BP 130/69
--- NOTE | 2020-07-14 23:07 | NUR ---
PT GIVEN URINE CUP IN TRIAGE
[2020-07-15 00:08] LABS: BASOPHILS # (AUTO) 0.02 x10^3/uL (0-0.1); BASOPHILS % (AUTO) 0 % (0-1); EOSINOPHILS # (AUTO) 0.09 x10^3/uL (0-0.4); EOSINOPHILS % (AUTO) 1 % (1-7); LYMPHOCYTES # (AUTO) 2.05 x10^3/uL (1-3.4); LYMPHOCYTES % (AUTO) 22 % (22-44); MD NO; MEAN CORPUSCULAR HEMOGLOBIN 25.8 pg (27.0-34.8); MEAN CORPUSCULAR HGB CONC 31.4 g/dL (32.4-35.8); MEAN PLATELET VOLUME 8.8 fL (7.4-10.4); MONOCYTES % (AUTO) 6 % (2-9); NEUTROPHILS # (AUTO) 6.58 x10^3/uL (1.8-6.8); NEUTROPHILS % (AUTO) 71 % (42-75); PLATELET COUNT 216 x10^3/uL (130-400); RED BLOOD COUNT 4.11 x10^6/uL (3.82-5.3); RED CELL DISTRIBUTION WIDTH 18.6 % (9.6-15.2)
[2020-07-15 00:19] LABS: ALANINE AMINOTRANSFERASE 17 U/L (12-78); ALBUMIN 2.7 g/dL (3.4-5.0); ANION GAP 9 mmol/L (5-15); CALCIUM 8.9 mg/dL (8.5-10.1); CHLORIDE 108 mmol/L (98-107)
[2020-07-15 00:21] LABS: ALKALINE PHOSPHATASE 63 U/L (45-117); BILIRUBIN,TOTAL 0.3 mg/dL (0.2-1.0); TOTAL PROTEIN 6.4 g/dL (6.4-8.2)
--- NOTE | 2020-07-15 01:13 | NUR ---
pt to restroom at this time
--- NOTE | 2020-07-15 01:24 | NUR ---
URINE SENT TO LAB AT THIS TIME
--- NOTE | 2020-07-15 01:47 | NUR ---
TASK RN: REPORT OF PT FROM FELICITY FERMIN AND ASSUMING TEMPORARY CARE OF PT AT THIS TIME.
[2020-07-15 02:02] LABS: MICROSCOPIC NOT IND
== END 2020-07-15 03:23 | disposition home or self-care (01) ==
LOC: ED 07-15
DX: O26.892 Other specified pregnancy related conditions, second trimester (principal); R10.32 Left lower quadrant pain; R10.31 Right lower quadrant pain; O99.212 Obesity complicating pregnancy, second trimester; O16.2 Unspecified maternal hypertension, second trimester; Z3A.18 18 weeks gestation of pregnancy; Z90.49 Acquired absence of other specified parts of digestive tract
CPT/HCPCS: 36415; 76805; 80053; 81003; 85025; 99284

== ENCOUNTER 2020-08-20 19:06 | Emergency (ER) | payer MEDICAID ==
[~2020-08-20] VITALS: Ht 170.2 cm; Wt 130.0 kg
[2020-08-20] MEDS ORDERED: SODIUM CHLORIDE FLUSH 10ML SYR IVF ONE (20:00)
[2020-08-20] MEDS ORDERED: SODIUM CHLORIDE 0.9% 1,000ML IVBOLUS ONE (20:00)
[2020-08-20 20:36] LABS: ALBUMIN 2.8 g/dL (3.4-5.0); ANION GAP 7 mmol/L (5-15); CALCIUM 9.2 mg/dL (8.5-10.1); CHLORIDE 108 mmol/L (98-107); CREATININE 0.68 mg/dL (0.55-1.02)
[2020-08-20 20:49] LABS: BASOPHILS % (AUTO) 0 % (0-1); EOSINOPHILS % (AUTO) 1 % (1-7); LYMPHOCYTES % (AUTO) 21 % (22-44); MEAN CORPUSCULAR HEMOGLOBIN 27.1 pg (27.0-34.8); MEAN CORPUSCULAR HGB CONC 32.1 g/dL (32.4-35.8); MEAN PLATELET VOLUME 8.9 fL (7.4-10.4); MONOCYTES % (AUTO) 6 % (2-9); NEUTROPHILS % (AUTO) 72 % (42-75); PLATELET COUNT 196 x10^3/uL (130-400); RED BLOOD COUNT 4.02 x10^6/uL (3.82-5.3); RED CELL DISTRIBUTION WIDTH 21.4 % (9.6-15.2)
[2020-08-20 20:52] LABS: MD NO
[2020-08-20] MEDS ORDERED: OMNIPAQUE 350 MG/ML, 75ML BOTTLE ONE (21:19)
[2020-08-20 21:49] VITALS: BP 125/56
== END 2020-08-20 22:12 | disposition home or self-care (01) ==
LOC: ED 21:51
DX: O99.512 Diseases of the respiratory system complicating pregnancy, second trimester (principal); O16.2 Unspecified maternal hypertension, second trimester; R06.00 Dyspnea, unspecified; J45.909 Unspecified asthma, uncomplicated; Z90.49 Acquired absence of other specified parts of digestive tract; Z3A.23 23 weeks gestation of pregnancy
CPT/HCPCS: 36415; 71045; 71275; 80048; 82040; 85025; 93005; 99285; J7030; Q9967

== ENCOUNTER 2020-08-26 00:05 | Outpatient (CLI) | payer MEDICAID ==
[~2020-08-26] VITALS: Ht 170.2 cm; Wt 129.1 kg
[2020-08-26 00:15] VITALS: BP 135/69
[2020-08-26 00:33] LABS: MICROSCOPIC INDICATED
[2020-08-26 00:45] LABS: AMPHETAMINE SCREEN, URINE Negative (Negative); BARBITURATE SCREEN, URINE Negative (Negative); BENZODIAZEPINE SCREEN, URINE Negative (Negative); CANNABINOID SCREEN, URINE Negative (Negative); COCAINE SCREEN, URINE Negative (Negative); METHADONE SCREEN, URINE Negative (Negative); OPIATE SCREEN, URINE Negative (Negative)
== END 2020-08-26 00:55 | disposition home or self-care (01) ==
LOC: LDOP 00:05
PROVIDERS: ATTEND Obstetrics & Gynecology
DX: O98.61 Protozoal diseases complicating pregnancy (principal); O26.852 Spotting complicating pregnancy, second trimester; Z3A.24 24 weeks gestation of pregnancy
CPT/HCPCS: 80307; 81001; 87086; 99211; G0463

== ENCOUNTER 2020-09-01 22:38 | Outpatient (CLI) | payer MEDICAID ==
[~2020-09-01] VITALS: Ht 170.2 cm; Wt 128.6 kg
[2020-09-01 23:21] LABS: MICROSCOPIC NOT IND
[2020-09-01 23:28] LABS: AMPHETAMINE SCREEN, URINE Negative (Negative); BARBITURATE SCREEN, URINE Negative (Negative); BENZODIAZEPINE SCREEN, URINE Negative (Negative); CANNABINOID SCREEN, URINE Negative (Negative); COCAINE SCREEN, URINE Negative (Negative); METHADONE SCREEN, URINE Negative (Negative); OPIATE SCREEN, URINE Negative (Negative)
== END 2020-09-02 00:26 | disposition home or self-care (01) ==
LOC: LDOP 22:38
PROVIDERS: ATTEND Obstetrics & Gynecology
DX: O98.512 Other viral diseases complicating pregnancy, second trimester (principal); O26.892 Other specified pregnancy related conditions, second trimester; Z3A.25 25 weeks gestation of pregnancy; Z20.828 Contact with and (suspected) exposure to other viral communicable diseases
CPT/HCPCS: 59025; 80307; 81003; 87086; 87635; 99211; G0463

== ENCOUNTER 2020-09-08 09:07 | Emergency (ER) | payer MEDICAID ==
[~2020-09-08] VITALS: Ht 170.2 cm; Wt 128.6 kg
--- NOTE | 2020-09-08 09:21 | NUR ---
BIB EMS FOR C/O L FLANK PAIN STARTED LAST NIGHT AFTER PT HAD EPISODE OF N/V. PT C/O PAIN 07/28. IS CURRENTLY 26 WKS . STATES SHE DIDN'T FEEL BABY MOVE LAST NIGHT BUT FELT BABY THIS AM. MARY FROM L&D AT BEDSIDE FOR HEART TONES. HR WNL. STATES SHE THINKS SHE HAD UTI RECENTLY CURRENTLY NO SX. DENIES ANY OTHER OB CONCERNS. DENIES DISCHARGE/BLEEDING/CRAMPING/INTERMITTENT ABD FIRMNESS. RECENTLY HAD STREP THROAT WAS PLACED ON ABX. BS 122, HR 120, BP 123/70, 97% RA. PT RESTING ON GURNEY. NADN. MONITORS IN PLACE.
[2020-09-08] MEDS ORDERED: ONDANSETRON ODT 8 MG ONE (09:57)
[2020-09-08] MEDS ORDERED: ACETAMINOPHEN 500 MG TABLET ONE (09:58)
[2020-09-08] MEDS ORDERED: ACETAMINOPHEN 325 MG TABLET PO ONE (10:00)
[2020-09-08] MEDS ORDERED: ONDANSETRON ODT 8 MG PO ONE (10:00)
[2020-09-08 10:46] LABS: MICROSCOPIC INDICATED
[2020-09-08 11:30] VITALS: BP 111/68
== END 2020-09-08 11:40 | disposition home or self-care (01) ==
LOC: ED 09:49
DX: O26.892 Other specified pregnancy related conditions, second trimester (principal); M54.5 Low back pain; I10 Essential (primary) hypertension; J45.909 Unspecified asthma, uncomplicated; Z3A.22 22 weeks gestation of pregnancy; Z90.49 Acquired absence of other specified parts of digestive tract
CPT/HCPCS: 81001; 99283; Q0162

== ENCOUNTER 2020-10-05 10:38 | Outpatient (CLI) | payer MEDICAID ==
[~2020-10-05] VITALS: Ht 170.2 cm; Wt 128.0 kg
[2020-10-05 11:02] VITALS: BP 126/60
[2020-10-05 12:25] LABS: MICROSCOPIC INDICATED
== END 2020-10-05 12:45 | disposition home or self-care (01) ==
LOC: LDOP 10:38
PROVIDERS: ATTEND Obstetrics & Gynecology
DX: O46.93 Antepartum hemorrhage, unspecified, third trimester (principal); Z3A.30 30 weeks gestation of pregnancy
CPT/HCPCS: 59025; 76817; 81001; 87086

== ENCOUNTER 2020-10-17 01:14 | Inpatient (IN) | payer MEDICAID ==
[~2020-10-17] VITALS: Ht 170.2 cm; Wt 128.6 kg
[2020-10-17 02:48] LABS: AMPHETAMINE SCREEN, URINE Negative (Negative); BARBITURATE SCREEN, URINE Negative (Negative); BENZODIAZEPINE SCREEN, URINE Negative (Negative); CANNABINOID SCREEN, URINE Negative (Negative); COCAINE SCREEN, URINE Negative (Negative); METHADONE SCREEN, URINE Negative (Negative); OPIATE SCREEN, URINE Negative (Negative)
[2020-10-17 02:50] LABS: MICROSCOPIC INDICATED
[2020-10-17] MEDS ORDERED: ONDANSETRON ODT 4 MG ONE (03:20)
[2020-10-17] MEDS ORDERED: OXYcodone/APAP 5/325MG TABLET ONE (03:22)
[2020-10-17] MEDS ORDERED: OXYcodone/APAP 5/325MG TABLET PO ONE (03:30)
[2020-10-17] MEDS ORDERED: ONDANSETRON ODT 4 MG PO ONE (03:30)
[2020-10-17] MEDS ORDERED: TERBUTALINE 1 MG/ML, 1ML ONE (03:37)
[2020-10-17] MEDS ORDERED: TERBUTALINE 1 MG/ML, 1ML SQ PRN (04:00)
[2020-10-17] MEDS ORDERED: MAGNESIUM SULFATE PMX 2GM/50ML 50 ML IVPB ONE (06:30)
[2020-10-17] MEDS ORDERED: CALCIUM GLUCONATE 4.6 MEQ/10 ML IV PRN (06:30)
[2020-10-17] MEDS ORDERED: MAGNESIUM SULFATE PMX 4GM/100M 100 ML IVPB ONE (06:30)
[2020-10-17] MEDS ORDERED: BETAMETHASONE 6 MG/ML, 5ML IM ONE (06:45)
[2020-10-17] MEDS ORDERED: MAGNESIUM SULFATE PMX 4GM/100M 100 ML ONE (06:47)
[2020-10-17] MEDS ORDERED: MAGNESIUM SULF. PMX 20GM/500ML 500 ML IV ONE ×2 (06:47→16:37)
[2020-10-17] MEDS: BETAMETHASONE 6 MG/ML, 5ML IM SCH (07:15)
[2020-10-17] MEDS: MAGNESIUM SULF. PMX 20GM/500ML 500 ML IV SCH ×2 (07:25→16:41)
[2020-10-17] MEDS: ESCITALOPRAM 10MG TABLET PO SCH (09:00)
[2020-10-17] MEDS: CEFAZOLIN PMX 1GM/50ML 50 ML IV SCH ×2 (09:00→16:41)
[2020-10-17] MEDS: LACTATED RINGERS 1,000 ML IV SCH ×2 (09:00→16:00)
[2020-10-17] MEDS ORDERED: ONDANSETRON 2MG/ML, 2ML ONE (12:52)
[2020-10-17] MEDS ORDERED: ONDANSETRON 2MG/ML, 2ML IVPush PRN (13:00)
[2020-10-17] MEDS ORDERED: ACETAMINOPHEN 325 MG TABLET ONE (14:00)
[2020-10-17] MEDS: ACETAMINOPHEN 325 MG TABLET PO PRN (14:04)
[2020-10-17 19:45] VITALS: BP 130/72
[2020-10-18] MEDS: CEFAZOLIN PMX 1GM/50ML 50 ML IV SCH ×2 (00:18→07:43)
[2020-10-18] MEDS: LACTATED RINGERS 1,000 ML IV SCH ×2 (02:09)
[2020-10-18] MEDS ORDERED: MAGNESIUM SULF. PMX 20GM/500ML 500 ML IV ONE (03:21)
[2020-10-18] MEDS: MAGNESIUM SULF. PMX 20GM/500ML 500 ML IV SCH (03:24)
[2020-10-18] MEDS ORDERED: ACETAMINOPHEN 325 MG TABLET ONE (05:26)
[2020-10-18] MEDS: ACETAMINOPHEN 325 MG TABLET PO PRN (05:28)
[2020-10-18] MEDS ORDERED: CALCIUM CARBONATE 500 MG TAB.CHEW ONE (06:12)
[2020-10-18] MEDS ORDERED: CALCIUM CARBONATE 500 MG TAB.CHEW PO PRN (06:30)
[2020-10-18] MEDS: BETAMETHASONE 6 MG/ML, 5ML IM SCH (07:41)
[2020-10-18 10:30] VITALS: BP 116/59
[2020-10-18] MEDS: ESCITALOPRAM 10MG TABLET PO SCH (11:00)
[2020-10-18] MEDS: metroNIDAZOLE 500 MG TABLET PO SCH (20:54)
[2020-10-18] MEDS ORDERED: DOCUSATE 100 MG CAPSULE ONE (22:38)
[2020-10-18] MEDS: DOCUSATE 100 MG CAPSULE PO SCH (22:39)
[2020-10-19] MEDS ORDERED: DOCU-131 PO (08:50)
[2020-10-19] MEDS ORDERED: METR500T PO (08:51)
[2020-10-19] MEDS: DOCUSATE 100 MG CAPSULE PO SCH (09:00)
[2020-10-19] MEDS: metroNIDAZOLE 500 MG TABLET PO SCH (09:54)
[2020-10-19] MEDS: ESCITALOPRAM 10MG TABLET PO SCH (09:55)
== END 2020-10-19 10:05 | disposition home or self-care (01) | DRG 831 ==
LOC: LDOP 01:14 → LDIP 03:00 → OBSVTOIN 06:24 → LDIP 09:45
PROVIDERS: ADMIT Obstetrics & Gynecology; ATTEND Obstetrics & Gynecology
DX: O32.1XX0 Maternal care for breech presentation, not applicable or unspecified (principal); O60.03 Preterm labor without delivery, third trimester; O23.593 Infection of other part of genital tract in pregnancy, third trimester; O99.820 Streptococcus B carrier state complicating pregnancy; O34.219 Maternal care for unspecified type scar from previous cesarean delivery; O99.343 Other mental disorders complicating pregnancy, third trimester; F32.9 Major depressive disorder, single episode, unspecified; Z20.828 Contact with and (suspected) exposure to other viral communicable diseases; O46.93 Antepartum hemorrhage, unspecified, third trimester; Z3A.32 32 weeks gestation of pregnancy
CPT/HCPCS: 36415; 76815; 80307; 81001; 83735; 87086; 87635; G0378; J0690; J0702; J2405; Q0162; J3105; J3475; J7120

== ENCOUNTER 2020-10-22 21:14 | Outpatient (CLI) | payer MEDICAID ==
[~2020-10-22 21:14] MED LIST changes: +METR500T PO
== END 2020-10-22 23:10 | disposition home or self-care (01) ==
LOC: LDOP 21:14
PROVIDERS: ATTEND Obstetrics & Gynecology
DX: O46.93 Antepartum hemorrhage, unspecified, third trimester (principal); Z3A.32 32 weeks gestation of pregnancy
CPT/HCPCS: 59025

== ENCOUNTER 2020-11-21 21:58 | Outpatient (CLI) | payer MEDICAID ==
[~2020-11-21 21:58] MED LIST changes: -OXYC-302 PO; +OXYC1TAB14 PO; +SERT-331 PO; -SERT25TA3 PO
[2020-11-21 22:31] LABS: MICROSCOPIC INDICATED
== END 2020-11-21 23:12 | disposition home or self-care (01) ==
LOC: LDOP 21:58
PROVIDERS: ATTEND Obstetrics & Gynecology
DX: O42.92 Full-term premature rupture of membranes, unspecified as to length of time between rupture and onset of labor (principal); Z3A.37 37 weeks gestation of pregnancy
CPT/HCPCS: 59025; 81001; 84112; 87086

== ENCOUNTER 2020-12-01 16:51 | Observation (INO) | payer MEDICAID ==
[~2020-12-01] VITALS: Ht 170.2 cm; Wt 129.0 kg
[2020-12-01 17:12] LABS: MICROSCOPIC INDICATED
[2020-12-01 17:22] LABS: AMPHETAMINE SCREEN, URINE Negative (Negative); BARBITURATE SCREEN, URINE Negative (Negative); BENZODIAZEPINE SCREEN, URINE Negative (Negative); CANNABINOID SCREEN, URINE Negative (Negative); COCAINE SCREEN, URINE Negative (Negative); METHADONE SCREEN, URINE Negative (Negative); OPIATE SCREEN, URINE Negative (Negative)
[2020-12-01 18:27] LABS: FERNING TEST FERNING NOT PRESENT (NEGATIVE)
== END 2020-12-01 19:10 | disposition home or self-care (01) ==
LOC: LDOP 16:51 → LDIP 18:43
PROVIDERS: ADMIT Obstetrics & Gynecology; ATTEND Obstetrics & Gynecology
DX: O99.820 Streptococcus B carrier state complicating pregnancy (principal); O98.113 Syphilis complicating pregnancy, third trimester; A53.9 Syphilis, unspecified; O99.013 Anemia complicating pregnancy, third trimester; D50.9 Iron deficiency anemia, unspecified; O99.343 Other mental disorders complicating pregnancy, third trimester; F32.9 Major depressive disorder, single episode, unspecified; Z3A.38 38 weeks gestation of pregnancy; Z79.899 Other long term (current) drug therapy
CPT/HCPCS: 59025; 76819; 80307; 81001; 84112; 87086; 89060; G0378; Q0114

== ENCOUNTER 2020-12-05 09:44 | Inpatient (IN) | payer MEDICAID ==
[~2020-12-05] VITALS: Ht 170.2 cm; Wt 131.8 kg
[2020-12-05] MEDS ORDERED: METOCLOPRAMIDE 5 MG/ML, 2ML IV ONE (10:00)
[2020-12-05] MEDS ORDERED: LACTATED RINGERS 1,000 ML IVBOLUS ONE (10:00)
[2020-12-05] MEDS ORDERED: PLEASE ENTER HEIGHT AND WEIGHT MC SCH (10:00)
[2020-12-05] MEDS ORDERED: ONDANSETRON 2MG/ML, 2ML IVPush ONE (10:00)
[2020-12-05 10:05] VITALS: BP 129/81
[2020-12-05 10:10] LABS: BASOPHILS % (AUTO) 0 % (0-1); EOSINOPHILS % (AUTO) 0 % (1-7); LYMPHOCYTES % (AUTO) 22 % (22-44); MEAN CORPUSCULAR HEMOGLOBIN 28.7 pg (27.0-34.8); MEAN CORPUSCULAR HGB CONC 33.4 g/dL (32.4-35.8); MONOCYTES % (AUTO) 6 % (2-9); NEUTROPHILS % (AUTO) 71 % (42-75); PLATELET COUNT 207 x10^3/uL (130-400); RED BLOOD COUNT 4.67 x10^6/uL (3.82-5.3); RED CELL DISTRIBUTION WIDTH 16.9 % (9.6-15.2)
[2020-12-05 10:14] LABS: MD NO
[2020-12-05 10:25] LABS: AMPHETAMINE SCREEN, URINE Negative (Negative); BARBITURATE SCREEN, URINE Negative (Negative); BENZODIAZEPINE SCREEN, URINE Negative (Negative); CANNABINOID SCREEN, URINE Negative (Negative); COCAINE SCREEN, URINE Negative (Negative); METHADONE SCREEN, URINE Negative (Negative); OPIATE SCREEN, URINE Negative (Negative)
[2020-12-05] MEDS ORDERED: OXYTOCIN 30U/ 0.9% NaCL 500ML 500 ML ONE ×2 (10:51→14:21)
[2020-12-05] MEDS ORDERED: NEWBORN KIT ONE (10:51)
[2020-12-05] MEDS ORDERED: METOCLOPRAMIDE 5 MG/ML, 2ML ONE (10:51)
[2020-12-05] MEDS ORDERED: SODIUM CITRATE/CITRIC ACID 15 ML UDC ONE (10:52)
[2020-12-05] MEDS: LACTATED RINGERS 1,000 ML IV SCH ×2 (11:15→14:32)
[2020-12-05] MEDS ORDERED: SODIUM CITRATE/CITRIC ACID 30 ML UDC PO ONE (12:00)
[2020-12-05] MEDS ORDERED: morphine SULFATE/PF 0.5 MG/ML, 10ML ONE (12:25)
[2020-12-05] MEDS ORDERED: SODIUM CHLORIDE 0.9% PF 10ML ONE ×2 (12:27→12:28)
[2020-12-05] MEDS ORDERED: CEFAZOLIN 1,000 MG ONE (12:27)
[2020-12-05] MEDS ORDERED: OXYTOCIN 10 UNITS/ML, 1ML ONE (12:27)
[2020-12-05] MEDS ORDERED: ONDANSETRON 2MG/ML, 2ML ONE (12:28)
[2020-12-05] MEDS ORDERED: DEXAMETHASONE 4 MG/ML, 1ML ONE (12:28)
[2020-12-05] MEDS ORDERED: PHENYLEPHRINE 10 MG/ML ONE (12:28)
[2020-12-05] MEDS ORDERED: KETOROLAC 30 MG/1 ML ONE (12:28)
[2020-12-05] MEDS ORDERED: MIDAZOLAM 1 MG/ML, 2ML ONE (12:47)
[2020-12-05] MEDS ORDERED: IBUPROFEN 200 MG TABLET PO PRN (13:00)
[2020-12-05] MEDS ORDERED: MISOPROSTOL 200 MCG TABLET PR PRN (13:00)
[2020-12-05] MEDS ORDERED: BISACODYL 10 MG SUPP PR PRN (13:00)
[2020-12-05] MEDS ORDERED: IBUPROFEN 800 MG TABLET PO PRN (13:00)
[2020-12-05] MEDS ORDERED: ONDANSETRON 2MG/ML, 2ML IV PRN (13:00)
[2020-12-05] MEDS ORDERED: RHOGAM FROM BLOOD BANK 1 NOTE EA IM/IV ONE (13:00)
[2020-12-05] MEDS ORDERED: ACETAMINOPHEN 325 MG TABLET PO PRN (13:00)
[2020-12-05] MEDS: OXYTOCIN 30U/ 0.9% NaCL 500ML 500 ML IV SCH ×2 (14:33→23:00)
[2020-12-05 16:49] VITALS: BP 115/72
[2020-12-05] MEDS: HYDROcodone/APAP 5/325 TABLET PO PRN (17:10)
[2020-12-05] MEDS ORDERED: ONDANSETRON 2MG/ML, 2ML IVPush PRN (18:00)
[2020-12-05] MEDS ORDERED: OXYcodone/APAP 5/325MG TABLET PO PRN (18:00)
[2020-12-05] MEDS ORDERED: DIPHENHYDRAMINE 50 MG/ML, 1ML IV PRN (18:00)
[2020-12-05] MEDS ORDERED: morphine SULFATE 10 MG/ML, 1ML IVPush PRN (18:00)
[2020-12-05] MEDS ORDERED: NO SEDATIVES, TRANQUILIZERS OR ANTIEMETICS XX SCH (18:00)
[2020-12-05] MEDS ORDERED: NALOXONE 0.4 MG/ML, 1ML IV PRN (18:00)
[2020-12-05] MEDS ORDERED: EPHEDRINE 50 MG/ML, 1ML IVPush PRN (18:00)
[2020-12-05] MEDS: KETOROLAC 30 MG/1 ML IVPush SCH (19:09)
[2020-12-05 20:40] VITALS: BP 109/69
[2020-12-05 21:03] LABS: BASOPHILS % (AUTO) 0 % (0-1); EOSINOPHILS % (AUTO) 0 % (1-7); LYMPHOCYTES % (AUTO) 13 % (22-44); MEAN CORPUSCULAR HEMOGLOBIN 29.1 pg (27.0-34.8); MEAN CORPUSCULAR HGB CONC 33.6 g/dL (32.4-35.8); MEAN PLATELET VOLUME 8.9 fL (7.4-10.4); MONOCYTES % (AUTO) 3 % (2-9); NEUTROPHILS % (AUTO) 84 % (42-75); PLATELET COUNT 193 x10^3/uL (130-400); RED BLOOD COUNT 3.84 x10^6/uL (3.82-5.3); RED CELL DISTRIBUTION WIDTH 17.1 % (9.6-15.2)
[2020-12-05 21:05] LABS: MD NO
[2020-12-06 00:46] VITALS: BP 101/68
[2020-12-06] MEDS: LACTATED RINGERS 1,000 ML IV SCH (00:51)
[2020-12-06] MEDS: KETOROLAC 30 MG/1 ML IVPush SCH ×2 (00:51→06:59)
[2020-12-06 04:02] VITALS: BP 101/63
[2020-12-06] MEDS: OXYcodone/APAP 5/325MG TABLET PO PRN ×5 (07:00→22:33)
[2020-12-06] MEDS: DOCUSATE 100 MG CAPSULE PO PRN ×2 (07:00→19:29)
[2020-12-06] MEDS: PRENATAL VIT/IRON/FA 1 EACH TABLET PO SCH (07:00)
[2020-12-06 07:10] VITALS: BP 101/69
[2020-12-06] MEDS: OXYTOCIN 30U/ 0.9% NaCL 500ML 500 ML IV SCH (09:00)
[2020-12-06] MEDS ORDERED: KETOROLAC 30 MG/1 ML IM PRN (13:00)
[2020-12-06] MEDS: IBUPROFEN 600 MG TABLET PO PRN (19:29)
[2020-12-06 20:00] VITALS: BP 126/79
[2020-12-07] MEDS: OXYcodone/APAP 5/325MG TABLET PO PRN ×4 (02:27→17:59)
[2020-12-07] MEDS: IBUPROFEN 600 MG TABLET PO PRN ×3 (02:29→14:22)
[2020-12-07 07:10] VITALS: BP 123/82
[2020-12-07] MEDS: DOCUSATE 100 MG CAPSULE PO PRN (07:57)
[2020-12-07] MEDS: PRENATAL VIT/IRON/FA 1 EACH TABLET PO SCH (07:57)
[2020-12-07 20:00] VITALS: BP 105/65
[2020-12-07] MEDS: HYDROcodone/APAP 5/325 TABLET PO PRN (22:06)
[2020-12-08] MEDS: OXYcodone/APAP 5/325MG TABLET PO PRN ×4 (02:53→11:26)
[2020-12-08] MEDS ORDERED: IBUP-1223 PO (06:49)
[2020-12-08] MEDS ORDERED: DOCU-131 PO (06:49)
[2020-12-08] MEDS ORDERED: OXYC1TAB14 PO (06:49)
[2020-12-08] MEDS: IBUPROFEN 600 MG TABLET PO PRN (07:25)
[2020-12-08] MEDS: DOCUSATE 100 MG CAPSULE PO PRN (07:25)
[2020-12-08 07:27] VITALS: BP 124/80
[2020-12-08] MEDS: PRENATAL VIT/IRON/FA 1 EACH TABLET PO SCH (09:00)
[2020-12-08] MEDS ORDERED: ONDANSETRON ODT 4 MG ONE (09:15)
[2020-12-08] MEDS ORDERED: ONDANSETRON ODT 4 MG PO PRN (09:30)
== END 2020-12-08 11:55 | disposition home or self-care (01) | DRG 787 ==
LOC: LDIP 09:44 → 2NW 15:49
PROVIDERS: ADMIT Obstetrics & Gynecology; ATTEND Obstetrics & Gynecology
PROC: 10D00Z1 Extraction of Products of Conception, Low, Open Approach (ICD-10-PCS; principal; 2020-12-05)
DX: O34.211 Maternal care for low transverse scar from previous cesarean delivery (principal); O99.354 Diseases of the nervous system complicating childbirth; Z37.0 Single live birth; Z3A.39 39 weeks gestation of pregnancy; O99.824 Streptococcus B carrier state complicating childbirth; O99.214 Obesity complicating childbirth; Z20.822 Contact with and (suspected) exposure to COVID-19; E66.9 Obesity, unspecified; K59.00 Constipation, unspecified; O99.62 Diseases of the digestive system complicating childbirth; F32.9 Major depressive disorder, single episode, unspecified; O99.344 Other mental disorders complicating childbirth; M19.90 Unspecified osteoarthritis, unspecified site; Z88.0 Allergy status to penicillin; Z91.040 Latex allergy status
CPT/HCPCS: 36415; 80307; 85025; 86592; 86850; 86900; 87635; G0378; J0690; J1100; J1885; J2250; J2274; J2405; Q0162; J2370; J2590; J2765; J7120